=== PATIENT | female | born 1945 | race Caucasian/White ===

== ENCOUNTER → 2017-01-02 | Outpatient (CLI) | payer BC ==
[~2017-01-02] MED LIST: ASPUNK PO; HYOS0.1255 PO
--- NOTE | 2017-01-02 15:40 | MAMMOGRAPHY REPORT ---
BILATERAL DIGITAL SCREENING MAMMOGRAM WITH CAD: 01/02/2017 CLINICAL HISTORY: Routine screening. Patient has no complaints. TECHNIQUE: Current study was also evaluated with a Computer Aided Detection (CAD) system. Bilatera l CC and MLO views were obtained. COMPARISON: Comparison is made to exams dated: 12/28/2015 mammogram, 12/26/2014 mammogram, 12/27/2013 mammogram, 12/15/2013 mammogram, 12/14/2012 mammogram, and 12/11/2011 mammogram - [facility]. BREAST COMPOSITION: There are scattered areas of fibroglandular density in both breasts. FINDINGS: No suspicious masses, calcifications, or areas of architectural distortion are noted in e ither breast. There has been no significant interval change compared to prior exams. IMPRESSION: ACR BI-RADS CATEGORY 1: NEGATIVE There is no mammographic evidence of malignancy. A 1 year screening mammogram is recommended. The p atient will receive written notification of the results. Approximately 10% of breast cancers are not detected with mammography. A negative mammographic repor t should not delay biopsy if a clinically suggestive mass is present. Laura Umana M.D. ah/:01/02/2017 15:05:22 Orchestrator: Mirna CORCORAN(R)(M), [facility] letter sent: Normal 1/2 BI-RADS Code: ACR BI-RADS Category 1: Negative
== END | disposition home or self-care (01) ==
LOC: C.MAMM 09:28
PROVIDERS: ATTEND Obstetrics & Gynecology
DX: Z12.31 Encounter for screening mammogram for malignant neoplasm of breast (principal)

== ENCOUNTER → 2017-02-21 | Outpatient (CLI) | payer BC | END | disposition home or self-care (01) | LOC: C.LABSPEC 17:21 | PROVIDERS: ATTEND Obstetrics & Gynecology | DX: N76.0 Acute vaginitis (principal) ==

== ENCOUNTER → 2018-01-05 | Outpatient (CLI) | payer BC ==
--- NOTE | 2018-01-06 07:46 | MAMMOGRAPHY REPORT ---
BILATERAL DIGITAL SCREENING MAMMOGRAM TOMOSYNTHESIS WITH CAD: 01/05/2018 CLINICAL HISTORY: Routine screening. TECHNIQUE: Breast tomosynthesis in addition to standard 2D mammography was performed. Current study was also evaluated with a Computer Aided Detection (CAD) system. COMPARISON: Comparison is made to exams dated: 01/02/2017 mammogram, 12/28/2015 mammogram, 12/26/2014 m ammogram, 12/15/2013 mammogram, 12/14/2012 mammogram, and 12/11/2011 mammogram - [facility] nter. BREAST COMPOSITION: There are scattered areas of fibroglandular density in both breasts. FINDINGS: No suspicious mass, architectural distortion or cluster of microcalcifications is seen. T here are benign coarse calcifications in the right breast. IMPRESSION: ACR BI-RADS CATEGORY 1: NEGATIVE There is no mammographic evidence of malignancy. A 1 year screening mammogram is recommended. The pa tient will receive written notification of the results. Approximately 10% of breast cancers are not detected with mammography. A negative mammographic report should not delay biopsy if a clinically suggestive mass is present. Tanesha Jensen M.D. ay/:01/05/2018 20:38:56 Sand Mixer Operator: Mirna CORCORAN(Gracie)(M), [facility] letter sent: Normal 1/2 BI-RADS Code: ACR BI-RADS Category 1: Negative
== END | disposition home or self-care (01) ==
LOC: C.MAMM 09:50
PROVIDERS: ATTEND Family Medicine
DX: Z12.31 Encounter for screening mammogram for malignant neoplasm of breast (principal)

== ENCOUNTER 2023-10-23 09:55 | Inpatient (IN) ==
[2023-10-23] MEDS ORDERED: SODIUM CHLORIDE 0.9% 500 ML IV STA (10:17)
[2023-10-23] MEDS ORDERED: ASPIRIN CHEW 324 MG PO STA (10:17)
[2023-10-23] MEDS ORDERED: MoRPHine SULFATE 4 MG/ML 1 ML CARP\\VIAL IV STA (10:17)
[2023-10-23] MEDS ORDERED: niCARdipine HCL INJ 2.5 MG/ML 10 ML AMP ONE (10:18)
[2023-10-23] MEDS ORDERED: ONDANSETRON INJ 2 MG/ML 2 ML VIAL IV STA (10:18)
[2023-10-23] MEDS ORDERED: MIDAZOLAM HCL 1 MG/ML 2ML VIAL ONE (10:19)
[2023-10-23] MEDS ORDERED: NITROGLYCERIN/D5W 100MCG/ML 20ML SYR ONE (10:19)
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
--- NOTE | 2023-10-23 10:30 | Pre Anesthesia Assessment ---
Date of Service October 23, 2023 Pre Sedation Assessment Vital Signs Temp Pulse Resp BP Pulse Ox O2 Del Method 10/23/23 10:29 77 10/23/23 09:56 Room Air 10/23/23 09:56 97.9 F 75 18 159/82 H 100 Cardiovascular + regular rate Respiratory + respiratory effort normal Pre-Sedation Airway Assessment Smoking Status: Never smoker Hx Sleep Apnea: No Hx Difficult Intubation: No Short, Thick Neck: No Thyromental Distance: > or= 3.5 Finger Breadths Oral Cavity: + Dental Abnormalities Mallampati Class: III ASA: ASA4 Procedure Planning Contraindications for Sedation: none Current Medications Reviewed: Yes Notes The planned sedation has been discussed with the patient. Informed Consent was obtained. I have identified the patient, determined the appropriateness of sedation and have assessed the patient immediately prior to the procedure. All medicine(s) and interventions are by my order.
[2023-10-23] MEDS ORDERED: TICAGRELOR 90 MG TAB ONE (10:32)
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
--- NOTE | 2023-10-23 10:38 | Cardiac Catheterization ---
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 Cardiac Status Clinical evaluation leading to the procedure CAD Presenation: STEMI Anginal Classification: CCS IV Diagnostic Physicians Name: Kana Schwarz MD Closure Device Recommendations: Medical Therapy and/or Counseling Cardiac Cath Procedure Full Procedure Date October 23, 2023 Pre-Procedure Diagnosis Pre-Procedure Diagnosis: STEMI AUC Score AUC Score: 9 Post-Procedure Diagnosis Post-Procedure Diagnosis: Severe CAD, Successful PCI and Normal Intracardiac Pressures Procedure(s) Performed Procedure(s) Performed: Coronary Angiography, Left Heart Cath and Drug Eluting Stent Sustainability Communicator Kana Schwarz MD Green Pipefitter(s) Zoraida Estimated Blood Loss Estimated Blood Loss: 25 Medication(s) Medication(s): Fentanyl, Heparin, Lidocaine 1%, Nicardipine, Nitroglycerin and Versed Medication(s): Ticagrelor Summary of Findings Indication: STEMI/Heart Alert Access: 6 Fr right radial artery Catheters: Spangler, JR4 guide, pigtail Findings: LM -Short, normal caliber, no significant disease LAD -medium caliber, calcified, 40 to 50% proximal disease, 80% distal stenosis prior to wrapping around apex. Small D1, D2 with mild disease. Circumflex -medium caliber 40% proximal stenosis at takeoff of OM1. Mid segment luminal regularities. Small OM1 without disease. Medium OM 2 without significant disease. RCA -dominant, medium caliber, 30 to 40% calcified proximal stenosis, subtotal distal RCA stenosis at bifurcation with PDA. VASYL I flow in the right posterior AV branch. 99% ostial small RPDA LVEDP -10 -- PCI -- Antithrombotic therapy: Heparin, ticagrelor Procedure: RCA cannulated with JR4 guide Whisper wire passed across lesion into distal right posterior AV branch, PLB Multiple attempts made to pass wire into PDA initially unsuccessful Distal RCA into PAV lesion predilated with 2.0 compliant balloon Further attempts made to wire into PDA with multiple wires. Eventually able to cross into PDA with executive pilot 50 and Corsair catheter. Ostial PDA dilated with prolonged 2.0 balloon inflation Dilated lesion stented with 2.5 x 18 mm Anibal from distal RCA across PDA into PAV. Stent post-dilated with stent balloon IC vasodilators administered for spasm Post procedure VASYL 3 flow, stent well expanded with minimal residual stenosis. Residual moderate ostial PDA stenosis but VASYL-3 flow. No other apparent cardiac complications. Arterial Closure: TR band Summary: 1. Inferior STEMI Subtotally occluded distal RCA at bifurcation with PDA RPDA 99% ostial stenosis 2. Severe non-culprit coronary artery disease -45% proximal LAD disease, 80% small distal LAD 40% proximal circumflex 3. Normal intracardiac filling pressure 4. Successful PCI of distal RCA into R-PAV branch with single LUÍS (2.5 x 18 mm [place]). -PTCA of ostial RPDA with 2.0 balloon Recommendations: Admit to ICU for continued monitoring Loaded with ticagrelor 180 mg in Landscape Crew Member Continue dual-antiplatelet therapy for at least 1 year. Trend troponins until peak, Check Echo Uptitrate beta-brittany/CELENA as BP allows High-dose statin Consult cardiac Rehab Plan on medical management of residual CAD. If refractory exertional symptoms as an outpatient PCI of distal LAD could be considered. Hemodynamics Rest Ao:: 158/64/101 Final Ao: 131/62/88 LV: 130/10 Recommendations Recommendations: Medical Therapy and/or Counseling Specimens Specimens: None Radiation Exposure (mGy) 3981 Contrast (mls) 128 Anesthesia Moderate 5563-1884 Procedural Complication(s) None Disposition ICU I attest to the content of the Intraoperative Record and any orders documented therein. Any exceptions are noted below. [facility] Card Cath Procedure Codes Cardiac Catheterization Procedure 1: Cardiovascular Cath Procedures: 59641 Coronaries and LHC (+/-LV) Moderate Sedation Procedure 1: Sedation/Anesthesia: 59429 Mod Sedation by the same physician;Init15 Min Child Age 5 & Up Procedure 2: Sedation/Anesthesia: 03450 Mod Sedation by the same physician; Ea Addit ional15 Minutes Stenting Procedure 1: Cardiovascular Stent Procedures: 57446 Perc transluminal revascularization of acute sub/total occl, aMI PG Care Time/CCT Total # of Minutes Spent Total Time Spent with Patient: Total time spent is greater than 50% in coordination of care (as documented) at patient's floor/unit and/or counseling patient:
[2023-10-23 10:41] LABS: Basophils # (auto) 0.08 K/uL (0.00-0.20); Basophils % (auto) 0.9 %; Eosinophils # (auto) 0.11 K/uL (0.00-0.50); Eosinophils % (auto) 1.2 %; Hematocrit (blood only) 43.4 % (37.0-47.0); Hemoglobin 14.8 g/dl (12.0-16.0); Immature Granulocytes # (auto) 0.07 K/uL (0.01-0.20); Immature Granulocytes % (auto) 0.8 %; Lymphocytes # (auto) 1.99 K/uL (1.20-3.40); Lymphocytes % (auto) 21.6 %; Mean Corpuscular Hemoglobin 31.6 pg (25.0-34.0); Mean Corpuscular Hgb Conc 34.1 g/dL (32.0-36.0); Mean Corpuscular Volume 92.5 fL (80.0-100.0); Mean Platelet Volume 8.8 fL (9.4-12.4); Monocytes # (auto) 0.66 K/uL (0.11-0.59); Monocytes % (auto) 7.2 %; Neutrophils % (auto) 68.3 %; Platelet Count 438 K/uL (130-400); RDW Coefficient of Variation 12.2 % (11.5-14.5); RDW Standard Deviation 41.3 fL (36.4-46.3); Red Blood Count 4.69 M/uL (4.20-5.40); White Blood Count 9.21 K/ul (4.8-10.8)
[2023-10-23 11:01] LABS: Albumin Globulin Ratio 1.4 (0.9-2); Albumin Level 4.2 gm/dl (3.4-5.0); BUN Creatinine Ratio 18.4 (10-20); Bilirubin,Total 0.6 mg/dl (0.2-1.0); Calcium 8.8 mg/dl (8.6-10.3); Creatinine Clr Calc Pharmacy 65.9 ml/min; Est GFR (African American) 88.3 ml/min; Est GFR (Non-African American) 76.2 ml/min; Potassium 4.1 mmol/L (3.5-5.1); Total Protein 7.2 gm/dl (6.0-8.3)
[2023-10-23 11:07] LABS: Troponin I High Sensitivity 27.7 pg/ml (0-14)
[2023-10-23] MEDS ORDERED: ACETAMINOPHEN 325 MG TAB PO PRN (11:56)
[2023-10-23] MEDS ORDERED: NITROGLYCERIN SL 0.4 MG/TAB TAB SL PRN (11:56)
[2023-10-23] MEDS ORDERED: SODIUM CHLORIDE 0.9% 500 ML IV SCH (12:15)
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
--- NOTE | 2023-10-23 12:35 | Post Anesthesia Assessment ---
Date of Service October 23, 2023 Post Sedation Assessment Vital Signs Temp Pulse Pulse Resp BP BP BP 10/23/23 12:27 70 10/23/23 12:09 97.3 F L 66 18 127/65 10/23/23 10:29 77 10/23/23 10:19 73 21 153/88 H 10/23/23 09:56 10/23/23 09:56 97.9 F 75 18 159/82 H Pulse Ox O2 Del Method 10/23/23 12:27 10/23/23 12:09 97 Room Air 10/23/23 10:29 10/23/23 10:19 100 Room Air 10/23/23 09:56 Room Air 10/23/23 09:56 100 Recovery Score Activity: Moves 4 extremities Respiration: Deep Breath/Cough Circulation: +/-20% PreAnes Value Consciousness: Fully Awake Oxygen Saturation: O2 needed for >90% Discharge Sedation Level of Care: Fast Track Phase II Post Sedation Plan On clinical assessment, the patient appears to have tolerated the sedation without complications. Patient is recovering as anticipated. Patient will continue to be monitored by nursing and may be discharged when sedation discharge criteria are met per below protocol. Upon Completions of procedure up to 15 minutes continue every 5 minute vital signs and the P.A.R. score; then discharge to a Phase I or Fast Track to Phase II per the following guidelines: * Discharge Patient to appropriate Phase II area if PAR is 8 or greater or return to pre- procedure baseline. The post - procedure orders will be as directed. * If PAR score is less than 8 or not return to pre-procedure baseline then patient will follow Phase I monitoring till PAR is reached for Phase II. The Phase I may be done in procedure room or may call to secure a Phase I area. * If naloxone or flumazenil are used for reversal, hold in Phase I for continued monitoring from when last reversal dose was given for a minimum of 60 minutes or longer pending the nurse and/or physician discretion of patient condition before discharge to Phase II. Please call the Sedation Physician to re-evaluate and complete post-note for discharge to Phase II area. Do NOT discharge from procedure sedation or Phase 1 until post- sedation evaluation note is complete by procedure /sedation MD Sedation Discharge Instructions to be given to the patient at discharge to home.
[2023-10-23] MEDS: HEPARIN (PORCINE) 1000 UNIT/ML 10 ML (CATH LAB USE ONLY) ONE ×2 (12:43→14:44)
[2023-10-23] MEDS: ATROPINE SULFATE 0.1 MG/ML 10ML SYR IV ONE ×2 (12:43→17:41)
[2023-10-23] MEDS: fentaNYL citrate PF 100 MCG/2 ML VIAL ONE ×2 (12:43→14:45)
[2023-10-23] MEDS: MIDAZOLAM HCL 1 MG/ML 2ML VIAL ONE ×2 (12:44→14:45)
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
[2023-10-23 13:09] LABS: Prothrombin Time 11.2 Seconds (9.0-12.0)
--- OUTSIDE RECORDS SUMMARY | 2023-10-23 13:42 | External Medical Summary | Summary of Care ---
Author Name Unknown Organization [facility] Address [address] [place] [address] Phone [phone] Care Team Providers Care Fiber Product Cutting Machine Operator Name Role Phone Isabelle LIRA MD, Sachin Chang Primary Care Provider [phone] Reason for Visit * Reason Onset Date Comments Med Request 10/17/2023 Encounter Details Date Type Department Care Team (Late st Contact Info) Description 10/17/2023 [facility] [address] [place] [address] Cheryl Clark MD Med Request Allergies Active Allergy Reactions Criticality Noted Date Comments Pollen 08/18/2014 Asthma as a child documented as of this encounter (statuses as of 10/17/2023) Medications Medication Sig Dispensed Refills Start Date End Date Status EXCEDRIN EXTRA STRENGTH 250-250-65 MG PO TABS as directed 0 Active Iron-Vitamin C 100-250 MG Oral Tablet 0 Active fluticasone (FLONASE) 50 MCG/ACT nasal spray 2 squirts to each nostril once a day - opp hand 1 Bottle 5 04/23/2019 Active guaiFENesin ER 600 MG Oral Tablet Extended Release 12 Hour Start: 12/11/21 12:53:00 EST 0 12/11/2021 Active Azelastine HCl 0.1 % Nasal Solution Administer into nostril 1 [place] in the morning AND 1 [place] before bedtime. 30 mL 12 02/21/2022 Active Enstilar 0.005-0.064 % External Foam (Calcipotriene-Beta meth Diprop)Indications: Psoriasis Apply to scalp daily as needed 60 g 1 03/08/2022 Active Acetaminophen ER 650 MG Oral Tablet Extended Release (Tylenol 8 Hour Arthritis Pain) Take by mouth 1 Tablet every 8 hours as needed for Pain, Moderate. 100 Tablet 3 05/21/2022 Active Fluocinolone Acetonide Scalp 0.01 % External Oil ([place]-Smoothe/FS Scalp)Indications:D ermatitis Apply to scalp at night as needed, wash off in AM 118.28 mL 2 12/16/2022 Active Triamcinolone Acetonide 0.1 % External Ointment (Aristocort)Indicat ions:Dermatitis Apply to trunk and extremities up to twice daily until improved, then taper down 80 g 2 12/16/2022 Active Methocarbamol 500 MG Oral Tablet (Robamol) Take 1 Tablet by mouth 4 times a day as needed for Muscle spasms. 0 Active Ketoconazole 2 % External Shampoo (Nizoral)Indication s:Seborrheic dermatitis Wash 1-2x a week face and scalp 120 mL 1 08/06/2023 Active Cefuroxime Axetil 500 MG Oral Tablet (Ceftin) Take 1 Tablet by mouth in the morning and 1 Tablet before bedtime. 20 Tablet 1 09/24/2023 Active amLODIPine Besylate 5 MG Oral Tablet (Norvasc) Take 1 Tablet by mouth in the morning. 90 Tablet 3 09/24/2023 Active Dupixent 300 MG/2ML Subcutaneous Solution Pen-injector (Dupilumab) Inject one pen under the skin every 2 weeks. 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 Irritable bowel syndrome 01/01/2001 Allergic rhinitis Deviated nasal septum documented as of this encounter (statuses as of 10/17/2023) Resolved Problems Problem Noted Date Diagnosed Date Resolved Date Cervicalgia 07/03/2011 07/02/2018 Headache 07/03/2011 03/30/2018 Overview: ICD-10 update of inactive term Subjective tinnitus 12/04/2009 07/02/20 18 Temporomandibular joint diso rders, unspecified 12/04/2009 03/30/2018 RECURRENT ACUTE SINUSITIS 05/30/2008 Anxiety state 07/30/2005 02/25/2023 Menopause 01/01/2001 03/30/2018 documented as of this encounter (statuses as of 10/17/2023) Immunizations Name Administration Dates Next Due COVID-19 mRNA, LNP-s, No Pre serve, 2-Dose Series (Capriza) 07/22/2022,01/12/2022,07/03/2021,11/20,10/27/2020 Pneumococcal Conjugate Vacc, 13 Valent (Prevnar) 03/15/2015 Pneumococcal Polysaccharide PPV23 (Pneumovax) 02/23/2013 Seasonal Influenza, PF, 6 M & above, IM , (FluLaval or Fluzone) 08/07/2022,07/02/2018 Seasonal Influenza, Split, I IV3, With Preserve, Inj 07/25/2015,08/19/2014,09/03/2013 TDAP (age 11 and older)(Adacel) 03/21/2009 Varicella Zoster Vaccine (Adult) 02/03/2012 Zoster Vaccine Recombinant (Shingrix) 08/11/2018 ,04/06/2018 documented as of this encounter Social History Tobacco Use Types Packs/Day Years Used Date Smoking Tobacco: Never Smokeless Tobacco: Never Alcohol Use Standard Drinks/Week Comments Yes 7 (1 standard drink = 0.6 oz pur e alcohol) per week PHQ-2 Answer Date Recorded PHQ Adult Total Score 0 02/25/2023 Sex and Gender Information Value Date Recorded Sex Assigned at Female 05/25/2021 11:03 AM EDT Gender Identity Female 05/25/2021 11:03 AM EDT Sexual Orientation Straight 05/25/2021 11 :03 AM EDT Job Start Date Occupation Industry Not on file Not on file Not on file documented as of this encounter Miscellaneous Notes * Telephone Encounter - Marva La LPN - 10/17/2023 3:37 PM EST Called [employer] back to verify 28 day PA and supply amount. * Telephone Encounter - Mitra De La Cruz [facility] - 10/17/2023 3:07 PM EST Pa Valid for 28 days not 90 days. Please call [facility] back and notify of this Mitra De La Cruz, PharmD,BCACP Medication Therapy Disease Management Dermatology Department 10/17/2023, 3:08 PM * Telephone Encounter - Maria A Lopez OSA - 10/17/2023 10:30 AM EST Linnea Carmona from [facility] is calling to see if a provider can update the patient's prescription for Dupixent to a 90 day supply (it's written as a 30 day supply). Please call with any questions to: [phone] option 1 then option 6 Thank You, BRUNILDA Gilbert documented in this encounter Plan of Treatment Upcoming Encounters Date Type Department Care Team (Late st Contact Info) Description 01/29/2024 11:30 AM EDT Telemedicine Dermatology [address] [address] [place], Pharmacist Dermatology [address] [place] [address] 03/09/2024 10:45 AM EDT Office Visit [facility] [address] [place] [address] Keven Dutton MD [address] [facility] [place] [address] 03/25/2024 9:20 AM EDT Office Visit Family Practice [place] [address] [place] [address] Sachin Walton III, MD [address] [place] [address] Scheduled Procedures Name Priority Associated Diagnoses Date/Ti me COLONOSCOPY FLEXIBLE PROXIMA L DIAGNOSTIC Recall History of colonic polyps Health Maintenance Due Date Last Done Comments COVID-19 Vaccine (2022- season) 2023 07/22/2022, 01/12/2022, 01/12/2022, Additional history exists Influenza Vaccine (FLU shot) (#1) 2023 08/07/2022, 06/14/2021, 06/03/2020, Additional history exists Depression Screening 02/26/2024 02/25/2023, 03/20/2017 (Discussed) COLONOSCOPY-EVERY 5 YRS AGES 18-100 07/23/2026 07/23/2021, 07/23/2021, 07/23/2018, Additional history exists DXA Scan 06/04/2029 06/04/2022, 07/0 02/2017, 03/08/2013 DTaP,Tdap,and Td Vaccines (3 - Td or Tdap) 07/28/2030 07/28/2020, 03/21/2009 Pneumococcal Vaccine: 65+ Years Completed 03/15/2015, 02/23/2013 Zoster Vaccines Completed 08/11/2018, 070 11/2017, 02/03/2012 COLONOSCOPY-EVERY 3 YRS AGES 18-100 Discontinued 07/23/2021, 07/23/2021, 07/23/2018, Additional history exists GARDASIL-HPV IMMUNIZATION SERIES Aged Out No longer eligible based on patient's age to complete this topic Hepatitis B Aged Out No longer eligi ble based on patient's age to complete this topic MENINGOCOCCAL (MENACTRA/MENVEO) Aged Out No longer eligible based on patient's age to complete this topic documented as of this encounter Medical Devices Not on filedocumented as of this encounter Care Teams Fiber Product Cutting Machine Operator Relationship Specialty Start Date End Date Sachin Walton III, MD [address] [place] [address] PCP - General 01/04/02 documented as of this encounter
--- OUTSIDE RECORDS SUMMARY | 2023-10-23 13:43 | External Medical Summary | Summary of Care ---
Author Name Unknown Organization [facility] Address [address] [place] [address] Phone [phone] Care Team Providers Care Sales Administration Manager Name Role Phone Isabelle LIRA MD, Sachin Chang Primary Care Provider [phone] Encounter Details Date Type Department Care Team ([facility] st Contact Info) Description 09/25/2023 Specialty Pharmacy [facility], [address] [address] Medication, [facility] Specialty Refill, [address] [address] Allergies Active Allergy Reactions Criticality Noted Date Comments Pollen 08/18/2014 Asthma as a child documented as of this encounter (statuses as of 09/25/2023) Medications Medication Sig Dispensed Refills Start Date [...] % Nasal Solution Administer into nostril 1 [place] in the morning AND 1 [place] before bedtime. 30 mL 12 02/21/2022 Active [...] Fluocinolone Acetonide Scalp 0.01 % External Oil ([place]-Smoothe/FS Scalp)Indications:D ermatitis Apply to scalp at night [...] and scalp 120 mL 1 08/06/2023 Active Dupixent 300 MG/2ML Subcutaneous Solution Pen-injector (Dupilumab) Inject one pen under the skin every 2 weeks. 4 mL 4 08/08/2023 Active Cefuroxime Axetil 500 MG Oral Tablet (Ceftin) Take 1 Tablet by mouth in the morning and 1 Tablet before bedtime. 20 Tablet 1 09/24/2023 Active amLODIPine Besylate 5 MG Oral Tablet (Norvasc) Take 1 Tablet by mouth in the morning. 90 Tablet 3 09/24/2023 Active documented as of this encounter (statuses as of 09/25/2023) Active Problems Problem Noted Date Diagnosed Date [...] as of this encounter (statuses as of 09/25/2023) Resolved Problems Problem Noted Date Diagnosed Date Resolved Date Cervicalgia 07/03/2011 07/02/2018 Headache 07/03/2011 03/30/2018 Overview: ICD-10 update of inactive term Subjective tinnitus 12/04/2009 07/02/20 18 Temporomandibular joint diso rders, unspecified 12/04/2009 03/30/2018 RECURRENT ACUTE SINUSITIS 05/30/2008 Anxiety state 07/30/2005 02/25/2023 Menopause 01/01/2001 03/30/2018 documented as of this encounter (statuses as of 09/25/2023) Immunizations Name Administration Dates Next Due COVID-19 mRNA, LNP-s, No Pre serve, 2-Dose Series (The Grommet) 07/22/2022,01/12/2022,07/03/2021,11/20,10/27/2020 Pneumococcal Conjugate Vacc, 13 Valent (Prevnar) [...] on file documented as of this encounter Progress Notes * Pamela Jeong PHARM Tech - 09/25/2023 3:22 PM EST Pt stated during refill that she needs to fill with [facility] starting 10/06/2023. Asked that we transfer Rx to [facility] after this refill. Traci Jeong health and safety technician [facility] 09/25/2023 3:24 PM * Pamela Jeong PHARM Tech - 09/25/2023 3:21 PM EST Prescribed medication: Medication: dupixent Shipment date: 10/01 Delivery method: Specialty Mail Location Medication Delivered too? Prescription Address: [address] [place] [address] ANGELA Lamb [facility] 09/25/2023,3:21 PM documented in this encounter Plan of Treatment Upcoming Encounters Date Type Department Care Team (Late st Contact Info) Description 01/29/2024 11:30 AM EDT Telemedicine Dermatology [address] [address] [place], Pharmacist Dermatology [address] [place] [address] 03/09/2024 10:45 AM EDT Office Visit Dermatology [facility] [address] [place] [address] Keven Dutton MD [address] [place] [address] 03/25/2024 9:20 AM EDT Office Visit Family Practice [place] [address] [place] [address] Sachin Walton III, MD [address] [place] [address] Scheduled Procedures Name Priority Associated Diagnoses Date/Ti me COLONOSCOPY FLEXIBLE PROXIMA L DIAGNOSTIC Recall History of colonic polyps Health Maintenance Due Date Last Done Comments COVID-19 Vaccine ( season) 2023 07/22/2022, 01/12/2022, 01/12/2022, Additional history [...] filedocumented as of this encounter Care Teams Sales Administration Manager Relationship Specialty Start Date End Date Isabelleterrence LIRA, Sachin Chang MD [address] [facility] [place] [address] PCP - General 01/04/02 documented as of this encounter
--- OUTSIDE RECORDS SUMMARY | 2023-10-23 13:43 | External Medical Summary | Summary of Care ---
Author Name Unknown Organization [facility] Address [address] [place] [address] Phone [phone] Care Team Providers Care Vegetable Vendor Name Role Phone Isabelle LIRA MD, Sachin Chang Primary Care Provider [phone] Reason for Visit * Reason Comments Re-Check Encounter Details Date Type Department Care Team (Late st Contact Info) Description 09/24/2023 9:40 AM EST [facility] [address] [facility] [place] [address] Sachin Waltno III, MD [address] [facility] [place] [address] HTN, goal below 140/90*; Gastroesophageal reflux disease, unspecified whether esophagitis present; Loose stools; Acute maxillary sinusitis, recurrence not specified Allergies Active Allergy Reactions Criticality Noted Date Comments Pollen 08/18/2014 Asthma as a child documented as of this encounter (statuses as of 09/24/2023) Medications Medication Sig Dispensed Refills Start Date [...] % Nasal Solution Administer into nostril 1 [place] in the morning AND 1 [place] before bedtime. 30 mL 12 02/21/2022 Active Enstilar 0.005-0.064 % External Foam (Calcipotriene-Bet ameth Diprop)Indications :Psoriasis Apply to scalp daily as needed 60 g 1 03/08/2022 Active Acetaminophen ER 650 MG Oral Tablet Extended Release (Tylenol 8 Hour Arthritis Pain) Take by mouth 1 Tablet every 8 hours as needed for Pain, Moderate. 100 Tablet 3 05/21/2022 Active Fluocinolone Acetonide Scalp 0.01 % External Oil ([place]-Smoothe/FS Scalp)Indications: Dermatitis Apply to scalp at night as needed, wash off in AM 118.28 mL 2 12/16/2022 Active Triamcinolone Acetonide 0.1 % External Ointment (Aristocort)Indica tions:Dermatitis Apply to trunk and extremities up to twice daily until improved, then taper down 80 g 2 12/16/2022 Active Methocarbamol 500 MG Oral Tablet (Robamol) Take 1 Tablet by mouth 4 times a day as needed for Muscle spasms. 0 Active Ketoconazole 2 % External Shampoo (Nizoral)Indicatio ns:Seborrheic dermatitis Wash 1-2x a week face and [...] the morning. 90 Tablet 3 09/24/2023 Active amLODIPine Besylate 5 MG Oral Tablet (Norvasc) Take 1 Tablet by mouth in the morning. 90 Tablet 3 02/25/2023 3 Discontinue d(Refill) documented as of this encounter (statuses as of 09/24/2023) Active Problems Problem Noted Date Diagnosed Date [...] as of this encounter (statuses as of 09/24/2023) Resolved Problems Problem Noted Date Diagnosed Date Resolved Date Cervicalgia 07/03/2011 07/02/2018 Headache 07/03/2011 03/30/2018 Overview: ICD-10 update of inactive term Subjective tinnitus 12/04/2009 07/02/20 18 Temporomandibular joint diso rders, unspecified 12/04/2009 03/30/2018 RECURRENT ACUTE SINUSITIS 05/30/2008 Anxiety state 07/30/2005 02/25/2023 Menopause 01/01/2001 03/30/2018 documented as of this encounter (statuses as of 09/24/2023) Immunizations Name Administration Dates Next Due COVID-19 mRNA, LNP-s, No Pre serve, 2-Dose Series (OxiCool) 07/22/2022,01/12/2022,07/03/2021,11/20,10/27/2020 Pneumococcal Conjugate Vacc, 13 Valent (Prevnar) [...] on file documented as of this encounter Last Filed Vital Signs Vital Sign Reading Time Taken Comments Blood Pressure 122/71 09/24/2023 9:48 AM EST Pulse 68 09/24/2023 9:48 AM EST Temperature 36.7 C (98.1 F) 09/24/2023 9:48 AM ES T Respiratory Rate 16 09/24/2023 9:48 AM EST Oxygen Saturation - - Inhaled Oxygen Concentration - - Weight 76.2 kg (168 lb) 09/24/2023 9:48 AM EST Height - - Body Mass Index 28.39 08/19/2023 9:54 AM EST documented in this encounter Progress Notes * Isabelle III, Sachin Chang MD - 09/24/2023 10:26 AM EST Subjective: Tika Wilson is a 77 year old female. Chief Complaint Patient presents with Re-Check HPI: Follow-up hypertension been [place] has had loose stools or heartburn had KUB stool studies doneall negative having some acid burning sensation up into her throat had been on Pepcid then started Mylanta and stopped the Pepcid Imodium had worked to trying get her stools firm up has stops those had loose stool no gross blood started Pro biotics a week ago has chronic sinus and problems headachethick nasal drainage inguinal cough a lot of gas which has lessened with Mylanta psoriasis on Dupixent PMH: Patient Active Problem List Diagnosis Code Irritable bowel syndrome K58.9 ADVANCE DIRECTIVE INFORMATION Allergic rhinitis J30.9 Deviated nasal septum J34.2 Esophageal reflux K21.9 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 20 Tablet 1 amLODIPine Besylate 5 MG Oral Tablet (Norvasc) Take 1 Tablet by mouth in the morning. 90 Tablet 3 EXCEDRIN EXTRA STRENGTH 250-250-65 MG PO TABS as directed Iron-Vitamin C 100-250 MG Oral Tablet fluticasone (FLONASE) 50 MCG/ACT nasal spray 2 squirts to each nostril once a day - opp hand 1 Bottle 5 guaiFENesin ER 600 MG Oral Tablet Extended Release 12 Hour Start: 12/11/21 12:53:00 EST Azelastine HCl 0.1 % Nasal Solution Administer into nostril 1 [place] in the morning AND 1 [place] before bedtime. 30 mL 12 Enstilar 0.005-0.064 % External Foam (Calcipotriene-Betameth Diprop) Apply to scalp daily as [id number] g 1 Acetaminophen ER 650 MG Oral Tablet Extended Release (Tylenol 8 Hour Arthritis Pain) Take by mouth 1 Tablet every 8 hours as needed for Pain, Moderate. 100 Tablet 3 Fluocinolone Acetonide Scalp 0.01 % External Oil ([place]-Smoothe/FS Scalp) Apply to scalp at night as needed, wash off in AM 118.28 mL 2 Triamcinolone Acetonide 0.1 % External Ointment (Aristocort) Apply to trunk and extremities up to twice daily until improved, then taper down 80 g 2 Methocarbamol 500 MG Oral Tablet (Robamol) Take 1 Tablet by mouth 4 times a day as needed for Muscle spasms. Ketoconazole 2 % External Shampoo (Nizoral) Wash 1-2x a week face and scalp 120 mL 1 Dupixent 300 MG/2ML Subcutaneous Solution Pen-injector (Dupilumab) Inject one pen under the skin every 2 weeks. 4 mL 4 No current facility-administered medications for this visit. Review of patient's allergies indicates: Allergen Reactions Pollen Asthma as a child Past Medical History: Diagnosis Date Acute gastric ulcer without mention of hemorrhage, perforation, or obstruction 12/22/89 secondary to NSAIDS, multiple antral ulcers EGD 1989 Allergic rhinitis Asthma, allergic as a child Benign neoplasm of colon 07/08/11 polyps--adenomatous tissue --repeat in 3 yrs Deviated nasal septum Internal hemorrhoids also external hemorrhoids Irritable bowel syndrome Other anxiety states Other chronic sinusitis Past Surgical History: Procedure Laterality Date COLONOSCOPY W/ LESION REMOVAL, SNARE 07/08/2011 polyps--adenomatous tissue --repeat in 3 yrs COLONOSCOPY, DIAGNOSTIC (RECTUM) 07/22/2014 adenomatous polyps, repeat 2 yrs/COLONOSCOPY FLEXIBLE PROXIMAL DIAGNOSTIC performed by Jonathan Garcia MD at [facility]COPY [facility] COLONOSCOPY, DIAGNOSTIC (RECTUM) 07/10/2015 adenomatous polyps, repeat 3 yrs/COLONOSCOPY FLEXIBLE PROXIMAL DIAGNOSTIC performed by Jonathan Garcia MD at ENDOSCOPY [facility] COLONOSCOPY, DIAGNOSTIC (RECTUM) 07/23/2018 adenomatous & hyperplastic polyps, repeat 3 yrs/COLONOSCOPY FLEXIBLE PROXIMAL DIAGNOSTIC performed by Jonathan Garcia MD at ENDOSCOPY [facility] COLONOSCOPY, DIAGNOSTIC (RECTUM) 07/23/2021 colon polyp, repeat 5 yrs / COLONOSCOPY FLEXIBLE PROXIMAL DIAGNOSTIC performed by Fuad Hawley MD at ENDOSCOPY [facility] EGD, FLEXIBLE, DIAGNOSTIC 09/26/2021 normal bx / ESOPHAGOGASTRODUODENOSCOPY (EGD), FLEXIBLE, TRANSORAL, DIAGNOSTIC performed by Lorena Monaco MD at ENDOSCOPY [facility] INSERTION OF LENS PROSTHESIS Bilateral 2018 MAMMOGRAM - BILATERAL 10/09/2006 [place] code 2/benign findings/dr Rouse MAMMOGRAM SCREENING-BILATERAL 10/26/2007 birad 2 MAMMOGRAM SCREENING-BILATERAL 12/02/2008 birad code 2, benign findings. PAP SCREEN 08/30 normal/o whitfield PAP SCREEN 08/15/2004 ashley/negative PAP SCREEN 09/10/2005 satisfactory for evaluation, dr rouse PAP SCREEN 04/10/2011 negative for mailgnancy PAP SCREEN 03/09/2013 neg SIGMOIDOSCOPY, DIAGNOSTIC 07/21/1985 int/ext hemorrhoids TOOTH ROOT REMOVAL 08/10/2014 UPPER GI ENDOSCOPY/EXAM 12/22/1989 UPPER GI WITHOUT AIR/KUB 03/09/1984 NL esophogram and UGI Objective: The patient is a 77 year old female BP 122/71 | Pulse 68 | Temp 36.7 C (98.1 F) | Resp 16 | Wt 76.2 kg (168 lb) | BMI 28.39 kg/m| BSA 1.86 m General: alert, healthy, and no distress Eye Exam: PERRLA, extraocular movements intact, conjunctiva are pink and non- injected, sclera clear Ears: External ears normal, Canals clear, TM's Normal Nose: sinus tenderness Oropharynx: no exudate, no erythema, lips, buccal mucosa, and tongue normal, and mucous membranes are moist Heart: regular rate & rhythm, no murmur, and no gallops Lungs: lungs clear to auscultation Abdomen: abdomen soft, normal bowel sounds, no masses or organomegaly, and epigastric tenderness ASSESSMENT: I10 HTN, goal below 140/90 (primary encounter diagnosis) K21.9 Gastroesophageal reflux disease, unspecified whether esophagitis present R19.5 Loose stools Maxillary sinusitis PLAN: Restart Pepcid Mylanta as needed continue Pro biotics treat sinuses with Ceftin restart nasal rinses saline RSV vaccine discussed keep in touch call if not resolving or worsening symptoms Follow up in 6 month(s). Sachin Walton III, MD * Merly Hood RN - 09/24/2023 9:48 AM EST Pt has been having irregular bowel movements, loose bowels, acid reflux, gas. Has stuffiness, headache for a couple of weeks. documented in this encounter Plan of Treatment Upcoming Encounters Date Type Department Care Team (Late st Contact Info) Description 01/29/2024 11:30 AM EDT Telemedicine Dermatology [address] [address] [place], Pharmacist Dermatology [address] [place] [address] 03/09/2024 10:45 AM EDT Office Visit Dermatology [facility] [place] [facility] [place] [address] Keven Dutton MD [address] [facility] [place] [address] 03/25/2024 9:20 AM EDT Office Visit Family Practice [facility] [place] [address] [facility] [place] [address] Sachin Walton III, MD [address] [facility] [place] [address] Scheduled Procedures Name Priority Associated Diagnoses Date/Ti [...] Additional history exists DXA Scan 06/04/2029 06/04/2022, 02/2017, 03/08/2013 DTaP,Tdap,and Td Vaccines (3 - Td or Tdap) 07/28/2030 07/28/2020, 03/21/2009 Pneumococcal Vaccine: 65+ Years Completed 03/15/2015, 02/23/2013 Zoster Vaccines Completed 08/11/2018, 11/2017, 02/03/2012 COLONOSCOPY-EVERY 3 YRS AGES 18-100 [...] Not on filedocumented as of this encounter Visit Diagnoses Diagnosis HTN, goal below 140/90- Primary Unspecified essential hypertension Gastroesophageal reflux disease, unspecified whether esophagitis present Loose stools Abnormal feces Acute maxillary sinusitis, recurrence not specified documented in this encounter Care Teams Vegetable Vendor Relationship Specialty Start Date End Date Sachin Walton III, MD [address] [facility] [place] [address] PCP - General 01/04/02 documented as of this encounter"
--- OUTSIDE RECORDS SUMMARY | 2023-10-23 13:43 | External Medical Summary | Summary of Care ---
Author Name Unknown Organization [facility] Address [address] [place] [address] Phone [phone] Care Team Providers Care Gantry Crane Operator Name Role Phone Isabelle LIRA MD, Sachin Chang Primary Care Provider [phone] Reason for Visit * Reason Onset Date Comments Medication Refill 10/08/2023 Encounter Details Date Type Department Care Team (Late st Contact Info) Description 10/08/2023 Refill Dermatology [facility] [place] [address] [place], [place] [id number] Cheryl Clark MD [address] [facility] [place] [address] Allergies Active Allergy Reactions Criticality Noted Date Comments Pollen 08/18/2014 Asthma as a child documented as of this encounter (statuses as of 10/08/2023) Medications Medication Sig Dispensed Refills Start Date [...] % Nasal Solution Administer into nostril 1 [place] in the morning AND 1 [place] before bedtime. 30 mL 12 02/21/2022 Active [...] Fluocinolone Acetonide Scalp 0.01 % External Oil ([place]-Smoothe/FS Scalp)Indications: Dermatitis Apply to scalp at night [...] 2 weeks. 4 mL 1 10/08/2023 Active Dupixent 300 MG/2ML Subcutaneous Solution Pen-injector (Dupilumab) Inject one pen under the skin every 2 weeks. 4 mL 4 08/08/2023 4 Discontinue d(Refill) documented as of this encounter (statuses as of 10/08/2023) Active Problems Problem Noted Date Diagnosed Date [...] as of this encounter (statuses as of 10/08/2023) Resolved Problems Problem Noted Date Diagnosed Date Resolved Date Cervicalgia 07/03/2011 07/02/2018 Headache 07/03/2011 03/30/2018 Overview: ICD-10 update of inactive term Subjective tinnitus 12/04/2009 07/02/20 18 Temporomandibular joint diso rders, unspecified 12/04/2009 03/30/2018 RECURRENT ACUTE SINUSITIS 05/30/2008 Anxiety state 07/30/2005 02/25/2023 Menopause 01/01/2001 03/30/2018 documented as of this encounter (statuses as of 10/08/2023) Immunizations Name Administration Dates Next Due COVID-19 mRNA, LNP-s, No Pre serve, 2-Dose Series ([address] [place]) 07/22/2022,01/12/2022,07/03/2021,11/20,10/27/2020 Pneumococcal Conjugate Vacc, 13 Valent (Prevnar) [...] encounter Miscellaneous Notes * Telephone Encounter - Kana Mckeon RPh - 10/08/2023 9:06 AM EST Forwarding remaining refills to [facility] due to insurance change Kana Mckeon, AbdonD Clinical Pharmacist [facility] 9:07 AM, 10/08/2023 documented in this encounter Plan of Treatment Upcoming Encounters Date Type Department Care Team (Late st Contact Info) Description 01/29/2024 11:30 AM EDT Telemedicine Dermatology [address] [address] [place], Pharmacist Dermatology [address] [place] [address] 03/09/2024 10:45 AM EDT Office Visit Dermatology [address] [place] [address] Keven Dutton MD [address] [place] [address] 03/25/2024 9:20 AM EDT Office Visit Family Practice [address] [place] [address] Sachin Walton III, MD [address] [place] [address] [place] [address] Scheduled Procedures Name Priority Associated Diagnoses Date/Ti [...] Additional history exists DXA Scan 06/04/2029 06/04/2022, 0 02/2017, 03/08/2013 DTaP,Tdap,and Td Vaccines (3 - Td or Tdap) 07/28/2030 07/28/2020, 03/21/2009 Pneumococcal Vaccine: 65+ Years Completed 03/15/2015, 02/23/2013 Zoster Vaccines Completed 08/11/2018, 0 11/2017, 02/03/2012 COLONOSCOPY-EVERY 3 YRS AGES 18-100 [...] filedocumented as of this encounter Care Teams Gantry Crane Operator Relationship Specialty Start Date End Date Sachin Walton III, MD [address] [place] [address] PCP - General 01/04/02 documented as of this encounter
--- OUTSIDE RECORDS SUMMARY | 2023-10-23 13:43 | External Medical Summary ---
Author Name Unknown Address Unknown Organization K01:[facility] [place] [address] [facility] [address] Laboratory Report Ordering Provider Test Date Status CARRIE HERNANDEZ 08/20/2023 10:05:08 Final Observation Date Value Abnormality Reference (Units ) Status Campylobacter sp DNA.diarrheagenic [Presence] in Stool by MIRZA with probe detection 08/20/2023 10:05:08 Negative Negative Final Salmonella sp rpoD gene [Presence] in Stool by MIRZA with probe detection 08/20/2023 10:05:08 Negative Negative Final Shigella species+EIEC invasion plasmid antigen H ipaH gene [Presence] in Stool by MIRZA with probe detection 08/20/2023 10:05:08 Negative Negative Final Vibrio sp DNA [Identifier] in Specimen by MIRZA with probe detection 08/20/2023 10:05:08 Negative Negative Final Yersinia enterocolitica recN gene [Presence] in Stool by MIRZA with probe detection 08/20/2023 10:05:08 Negative Negative Final Escherichia coli Stx1 toxin stx1 gene [Presence] in Stool by MIRZA with probe detection 08/20/2023 10:05:08 Negative Negative Final Escherichia coli Stx2 toxin stx2 gene [Presence] in Stool by MIRZA with probe detection 08/20/2023 10:05:08 Negative Negative Final Norovirus genogroups I and II RNA panel - Stool by MIRZA with probe detection 08/20/2023 10:05:08 Negative Negative Final Rotavirus A RNA [Presence] in Stool by MIRZA with probe detection 08/20/2023 10:05:08 Negative Negative Final Performing Location LABORATORY [address] [facility] [address]
--- OUTSIDE RECORDS SUMMARY | 2023-10-23 13:43 | External Medical Summary | Summary of Care ---
Author Name Unknown Organization [facility] Address [address] [place] [address] Phone [phone] Care Team Providers Care Custom Car Builder Name Role Phone Isabelle LIRA MD, Sachin Chang Primary Care Provider [phone] Reason for Visit * Reason Comments Diarrhea Patient states loose BM x's 1 month. Patient states drank water in [place], has been upset since. Irritable Bowel Patient states sudde n onset of heartburn x's 1.5 week, sudden sweating and then IBS has kicked in with discomfort in lower abdomen. Encounter Details Date Type Department Care Team (Late st Contact Info) Description 08/19/2023 10:00 AM EST Office Visit General Internal Medicine [facility] [address] [facility] [place] [address] Efrain Clayton PA-C 200 [facility] [place] [address] Irritable bowel syndrome with both constipation and diarrhea*; Gastroesophageal reflux disease, unspecified whether esophagitis present Allergies Active Allergy Reactions Criticality Noted Date Comments Pollen 08/18/2014 Asthma as a child documented as of this encounter (statuses as of 08/19/2023) Medications Medication Sig Dispensed Refills Start Date [...] % Nasal Solution Administer into nostril 1 [place] in the morning AND 1 [place] before bedtime. 30 mL 12 02/21/2022 Active Enstilar 0.005-0.064 % External Foam (Calcipotriene-Be tameth Diprop)Indication s:Psoriasis Apply to scalp daily as needed 60 g 1 03/08/2022 Active Acetaminophen ER 650 MG Oral Tablet Extended Release (Tylenol 8 Hour Arthritis Pain) Take by mouth 1 Tablet every 8 hours as needed for Pain, Moderate. 100 Tablet 3 05/21/2022 Active Fluocinolone Acetonide Scalp 0.01 % External Oil ([place]-Smoothe/FS Scalp)Indications :Dermatitis Apply to scalp at night as needed, wash off in AM 118.28 mL 2 12/16/2022 Active Triamcinolone Acetonide 0.1 % External Ointment (Aristocort)Indic ations:Dermatitis Apply to trunk and extremities up to twice daily until improved, then taper down 80 g 2 12/16/2022 Active Methocarbamol 500 MG Oral Tablet (Robamol) Take 1 Tablet by mouth 4 times a day as needed for Muscle spasms. 0 Active amLODIPine Besylate 5 MG Oral Tablet (Norvasc) Take 1 Tablet by mouth in the morning. 90 Tablet 3 02/25/2023 Active Ketoconazole 2 % External Shampoo (Nizoral)Indicati ons:Seborrheic dermatitis Wash 1-2x a week face and scalp 120 mL 1 08/06/2023 Active Dupixent 300 MG/2ML Subcutaneous Solution Pen-injector (Dupilumab) Inject one pen under the skin every 2 weeks. 4 mL 4 08/08/2023 Active Hyoscyamine Sulfate 0.125 MG Oral Tablet (Levsin) Take by mouth 1 Tablet every 4 hours as needed for Cramping. for abdominal pain 40 Tablet 2 05/21/2022 08/19/20 23 Discontinued documented as of this encounter (statuses as of 08/19/2023) Active Problems Problem Noted Date Diagnosed Date [...] as of this encounter (statuses as of 08/19/2023) Resolved Problems Problem Noted Date Diagnosed Date Resolved Date Cervicalgia 07/03/2011 07/02/2018 Headache 07/03/2011 03/30/2018 Overview: ICD-10 update of inactive term Subjective tinnitus 12/04/2009 07/02/20 18 Temporomandibular joint diso rders, unspecified 12/04/2009 03/30/2018 RECURRENT ACUTE SINUSITIS 05/30/2008 Anxiety state 07/30/2005 02/25/2023 Menopause 01/01/2001 03/30/2018 documented as of this encounter (statuses as of 08/19/2023) Immunizations Name Administration Dates Next Due COVID-19 mRNA, LNP-s, No Pre serve, 2-Dose Series ([facility]) 07/22/2022,01/12/2022,07/03/2021,11/20,10/27/2020 Pneumococcal Conjugate Vacc, 13 Valent (Prevnar) 03/15/2015 Pneumococcal Polysaccharide PPV23 (Pneumovax) 02/23/2013 SEASONAL INFLUENZA, PF, 6 M & Above, IM , (FLULAVAL or FLUZONE) 08/07/2022,07/02/2018 Seasonal Influenza, Split, I IV3, With Preserve, Inj 07/25/2015,08/19/2014,09/03/2013 TDAP (age 11 and older)(Adacel) 03/21/2009 Varicella Zoster Vaccine (Adult) 02/03/2012 Zoster Vaccine Recombinant (Shingrix) 08/11/2018 ,04/06/2018 documented as of this encounter Social History Tobacco Use Types Packs/Day Years Used Date Smoking Tobacco: Never Smokeless Tobacco: Never Tobacco Cessation:Counseling Given: Not Answered Alcohol Use Standard Drinks/Week Comments Yes 7 [...] Sign Reading Time Taken Comments Blood Pressure 138/72 08/19/2023 9:54 AM EST Pulse 79 08/19/2023 9:54 AM EST Temperature 36.7 C (98.1 F) 08/19/2023 9:54 AM ES T Respiratory Rate - - Oxygen Saturation 98% 08/19/2023 9:54 AM EST Inhaled Oxygen Concentration - - Weight 74.4 kg (164 lb 1.6 oz) 08/19/2023 9:54 A M EST Height 163.8 cm (5' 4.5") 08/19/2023 9:54 AM EST Body Mass Index 27.73 08/19/2023 9:54 AM EST documented in this encounter Progress Notes * Efrain Clayton PA-C - 08/19/2023 9:56 AM EST Subjective: Tika Wilson is a 77 year old female. Chief Complaint Patient presents with Diarrhea Patient states loose BM x's 1 month. Patient states drank water in [place], has been upset since. Irritable Bowel Patient states sudden onset of heartburn x's 1.5 week, sudden sweating and then IBS has kicked in with discomfort in lower abdomen. HPI: 77 y/o female with IBS, GERD, HLD, IBS seen today with complaint of increased heartburn and loose bowels starting about a month ago after drinking [place] water in [place] which signs said not to drink. Lower abdominal cramping. Has tried pepto-bismol but would cause constipation. Has tried imodium. Took levsin which resolved cramping symptoms. Does not use fiber. Currently will have bowel movement every 2-3 days which is loose. Bowels are not daily. No blood. Having belching, but heartburn has down. PMH: Patient Active Problem List Diagnosis Code Irritable bowel syndrome K58.9 ADVANCE DIRECTIVE INFORMATION Allergic rhinitis J30.9 Deviated nasal septum J34.2 Esophageal reflux K21.9 Chronic pharyngitis J31.2 History of skin cancer Z85.828 Hx of actinic keratosis Z87.2 Dyslipidemia E78.5 Current Outpatient Medications Medication Sig Dispense Refill EXCEDRIN EXTRA STRENGTH 250-250-65 MG PO TABS as directed Iron-Vitamin C 100-250 MG Oral Tablet fluticasone (FLONASE) 50 MCG/ACT nasal spray 2 squirts to each nostril once a day - opp hand 1 Bottle 5 guaiFENesin ER 600 MG Oral Tablet Extended Release 12 Hour Start: 12/11/21 12:53:00 EST Azelastine HCl 0.1 % Nasal Solution Administer into nostril 1 [place] in the morning AND 1 [place] before bedtime. 30 mL 12 Enstilar 0.005-0.064 % External Foam (Calcipotriene-Betameth Diprop) Apply to scalp daily as yesuwf33 g 1 Acetaminophen ER 650 MG Oral Tablet Extended Release (Tylenol 8 Hour Arthritis Pain) Take by mouth 1 Tablet every 8 hours as needed for Pain, Moderate. 100 Tablet 3 Fluocinolone Acetonide Scalp 0.01 % External Oil ([place]-Smoothe/FS Scalp) Apply to scalp at night as needed, wash off in AM 118.28 mL 2 Triamcinolone Acetonide 0.1 % External Ointment (Aristocort) Apply to trunk and extremities up to twice daily until improved, then taper down 80 g 2 Methocarbamol 500 MG Oral Tablet (Robamol) Take 1 Tablet by mouth 4 times a day as needed for Muscle spasms. amLODIPine Besylate 5 MG Oral Tablet (Norvasc) Take 1 Tablet by mouth in the morning. 90 Tablet 3 Ketoconazole 2 % External Shampoo (Nizoral) Wash 1-2x a week face and scalp 120 mL 1 Dupixent 300 MG/2ML Subcutaneous Solution Pen-injector (Dupilumab) Inject one pen under the skin every 2 weeks. 4 mL 4 Hyoscyamine Sulfate 0.125 MG Oral Tablet (Levsin) Take by mouth 1 Tablet every 4 hours as needed for Cramping. for abdominal pain (Patient not taking: Reported on 08/19/2023) 40 Tablet 2 No current facility-administered medications for this visit. Review of patient's allergies indicates: Allergen Reactions Pollen Asthma as a child All other review of systems reviewed and negative other than mentioned in HPI. Objective: BP 138/72 | Pulse 79 | Temp 36.7 C (98.1 F) | Ht 1.638 m (5' 4.5") | Wt 74.4 kg (164 lb 1.6 oz)| SpO2 98% | BMI 27.73 kg/m | BSA 1.84 m Physical Exam Constitutional: General: She is not in acute distress. Appearance: Normal appearance. She is normal weight. She is not ill-appearing or toxic-appearing. HENT: Head: Normocephalic and atraumatic. Eyes: Extraocular Movements: Extraocular movements intact. Conjunctiva/sclera: Conjunctivae normal. Pupils: Pupils are equal, round, and reactive to light. Cardiovascular: Rate and Rhythm: Normal rate and regular rhythm. Heart sounds: Normal heart sounds. No murmur heard. No friction rub. No gallop. Pulmonary: Effort: Pulmonary effort is normal. Breath sounds: Normal breath sounds. No wheezing, rhonchi or rales. Abdominal: General: Bowel sounds are normal. There is no distension. Palpations: Abdomen is soft. There is no mass. Tenderness: There is no abdominal tenderness. There is no guarding or rebound. Neurological: Mental Status: She is alert. ASSESSMENT: Irritable bowel syndrome with both constipation and diarrhea (Primary) - GASTROINTESTINAL PATHOGEN PANEL, STOOL; Future; Expected date: 08/19/2023 - OVA AND PARASITES, CONCENTRATE AND PERMANENT SMEAR; Future; Expected date: 08/19/2023 - XR ABDOMEN 1 VIEW Suspect constipation with overflow causing symptoms. Will check stool sample given drank water she was not supposed to. Check KUB to assess stool burden. Consider miralax for clean out. Suspect if treated increased heartburn symptoms will completely resolve. Already improved for the most part. Gastroesophageal reflux disease, unspecified whether esophagitis present Efrain Clayton PA-C documented in this encounter Nursing Notes * Jaylyn Bhatt LPN - 08/19/2023 9:54 AM EST Chief Complaint Patient presents with Diarrhea Patient states loose BM x's 1 month. Patient states drank water in [place], has been upset since. Irritable Bowel Patient states sudden onset of heartburn x's 1.5 week, sudden sweating and then IBS has kicked in with discomfort in lower abdomen. documented in this encounter Plan of Treatment Upcoming Encounters Date Type Department Care Team (Late st Contact Info) Description 08/19/2023 10:40 AM EST Imaging Radiology [facility] [place] [facility] [place] [address] Arrived 08/19/2023 11:00 AM EST Laboratory Laboratory [facility] [place] [facility] [place] [id number] [facility] [place] [address] [address] [place] [address] Arrived 09/24/2023 9:40 AM EST Office Visit Family Practice [facility] [place] [facility] [place] [address] Sachin Walton III, MD 200 [facility] [place] [address] 01/29/2024 11:30 AM EDT Telemedicine Dermatology [address] [address] She[place], Pharmacist Dermatology [address] [place] [address] 03/09/2024 10:45 AM EDT Office Visit Dermatology [facility] [place] [address] [place] [address] [address] Keven Dutton MD 200 [facility] [place] [address] Pending Results Name Type Priority Associated Diagnoses Date /Time XR ABDOMEN 1 VIEW Medical Imaging Routine Irritable bowel syndrome with both constipation and diarrhea 08/19/2023 10:27 AM EST Scheduled Orders Name Type Priority Associated Diagnoses Orde r Schedule GASTROINTESTINAL PATHOGEN PANEL, STOOL Lab Routine Irritable bowel syndrome with both constipation and diarrhea Expected: 08/19/2023 (Approximate), Expires: 08/18/2024 OVA AND PARASITES, CONCENTRATE AND PERMANENT SMEAR Lab Routine Irritable bowel syndrome with both constipation and diarrhea Expected: 08/19/2023 (Approximate), Expires: 08/19/2024 Scheduled Procedures Name Priority Associated Diagnoses Date/Ti [...] Completed 03/15/2015, 02/23/2013 Zoster Vaccines Completed 08/11/2018, 07/0 11/2017, 02/03/2012 COLONOSCOPY-EVERY 3 YRS AGES 18-100 [...] as of this encounter Visit Diagnoses Diagnosis Irritable bowel syndrome with both constipation and diarrhea- Primary Gastroesophageal reflux disease, unspecified whether esophagitis present documented in this encounter Care Teams Custom Car Builder Relationship Specialty Start Date End Date Sachin Walton III, MD 200 [facility] [place] [address] PCP - General 01/04/02 documented as of this encounter
--- OUTSIDE RECORDS SUMMARY | 2023-10-23 13:43 | External Medical Summary | Summary of Care ---
Author Name Unknown Organization [facility] Address [address] [place] [address] Phone [phone] Care Team Providers Care Senior Technical Writer Name Role Phone Isabelle LIRA MD, Sachin Chang Primary Care Provider [phone] Reason for Visit * Reason Comments Medication Refill Encounter Details Date Type Department Care Team (Late st Contact Info) Description 08/08/2023 Refill Dermatology [facility] [place] [address] [place], [place] [id number] Cheryl Gomez MD [address] [facility] [place] [address] Allergies Active Allergy Reactions Criticality Noted Date Comments Pollen 08/18/2014 Asthma as a child documented as of this encounter (statuses as of 08/08/2023) Medications Medication Sig Dispensed Refills Start Date [...] % Nasal Solution Administer into nostril 1 [place] in the morning AND 1 [place] before bedtime. 30 mL 12 02/21/2022 Active Enstilar 0.005-0.064 % External Foam (Calcipotriene-Bet ameth Diprop)Indications :Psoriasis Apply to scalp daily as needed 60 g 1 03/08/2022 Active Hyoscyamine Sulfate 0.125 MG Oral Tablet (Levsin) Take by mouth 1 Tablet every 4 hours as needed for Cramping. for abdominal pain 40 Tablet 2 05/21/2022 Active Acetaminophen ER 650 MG Oral Tablet Extended Release (Tylenol 8 Hour Arthritis Pain) Take by mouth 1 Tablet every 8 hours as needed for Pain, Moderate. 100 Tablet 3 05/21/2022 Active Fluocinolone Acetonide Scalp 0.01 % External Oil ([place]-Smoothe/FS Scalp)Indications: Dermatitis Apply to scalp at night [...] 02/25/2023 Active Ketoconazole 2 % External Shampoo (Nizoral)Indicatio ns:Seborrheic dermatitis Wash 1-2x a week face and scalp 120 mL 1 08/06/2023 Active Dupixent 300 MG/2ML Subcutaneous Solution Pen-injector (Dupilumab) Inject one pen under the skin every 2 weeks. 4 mL 4 08/08/2023 Active Dupixent 300 MG/2ML Subcutaneous Solution Pen-injector (Dupilumab) Inject one pen under the skin every 2 weeks. 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 Irritable bowel syndrome 01/01/2001 Allergic rhinitis Deviated nasal septum documented as of this encounter (statuses as of 08/08/2023) Resolved Problems Problem Noted Date Diagnosed Date Resolved Date Cervicalgia 07/03/2011 07/02/2018 Headache 07/03/2011 03/30/2018 Overview: ICD-10 update of inactive term Subjective tinnitus 12/04/2009 07/02/20 18 Temporomandibular joint diso rders, unspecified 12/04/2009 03/30/2018 RECURRENT ACUTE SINUSITIS 05/30/2008 Anxiety state 07/30/2005 02/25/2023 Menopause 01/01/2001 03/30/2018 documented as of this encounter (statuses as of 08/08/2023) Immunizations Name Administration Dates Next Due COVID-19 mRNA, LNP-s, No Pre serve, 2-Dose Series (Pfizer) 07/22/2022,01/12/2022,07/03/2021,11/20,10/27/2020 Pneumococcal Conjugate Vacc, 13 Valent (Prevnar) [...] encounter Miscellaneous Notes * Telephone Encounter - Cheryl Gomez MD - 08/08/2023 1:17 PM EDTSigned Prescriptions: Disp Refills Dupixent 300 MG/2ML Subcutaneous Solution *4 mL 4 Sig: Inject one pen under the skin every 2 weeks. Authorizing Provider: CHERYL GOMEZ * Telephone Encounter - Adrianne Shields OSA - 08/08/2023 9:37 AM EDTPending Prescriptions: Disp Refills Dupixent 300 MG/2ML Subcutaneous Solution *4 mL 4 Sig: Inject one pen under the skin every 2 weeks. documented in this encounter Plan of Treatment Upcoming Encounters Date Type Department Care Team (Late st Contact Info) Description 09/24/2023 9:40 AM EST Office Visit Family Practice [facility] [place] [address] [place] [address] Sachin Walton III, MD [address] [place], [place] [address] 01/29/2024 11:30 AM EDT Telemedicine Dermatology [address] [place] [address] [place], Pharmacist Dermatology [address] [place] [address] 03/09/2024 10:45 AM EDT Office Visit Dermatology [facility] [place] [address] [facility] [address] Keven Dutton MD [address] [facility] [address] Scheduled Procedures Name Priority Associated Diagnoses Date/Ti [...] filedocumented as of this encounter Care Teams Senior Technical Writer Relationship Specialty Start Date End Date Isabelle LIRA, Sachin Chang MD 200 [place] [address] PCP - General 01/04/02 documented as of this encounter
--- OUTSIDE RECORDS SUMMARY | 2023-10-23 13:43 | External Medical Summary | Summary of Care ---
Author Name Unknown Organization [facility] Address [address] [place] [address] Phone [phone] Care Team Providers Care Chicken And Fish Butcher Name Role Phone Isabelle LIRA MD, Sachin Chang Primary Care Provider [phone] Reason for Visit * Reason Comments Outpatient Testing Encounter Details Date Type Department Care Team (Late st Contact Info) Description 08/20/2023 10:10 AM EST Laboratory [facility] [address] [place] [phone] Bob White, Lab Scenery [address] [facility] [place] [address] Irritable bowel syndrome with both constipation and diarrhea Allergies Active Allergy Reactions Criticality Noted Date Comments Pollen 08/18/2014 Asthma as a child documented as of this encounter (statuses as of 08/20/2023) Medications Medication Sig Dispensed Refills Start Date [...] % Nasal Solution Administer into nostril 1 [place] in the morning AND 1 [place] before bedtime. 30 mL 12 02/21/2022 Active [...] Fluocinolone Acetonide Scalp 0.01 % External Oil ([place]-Smoothe/FS Scalp)Indications:D ermatitis Apply to scalp at night [...] 02/25/2023 Active Ketoconazole 2 % External Shampoo (Nizoral)Indication s:Seborrheic dermatitis Wash 1-2x a week face and scalp 120 mL 1 08/06/2023 Active Dupixent 300 MG/2ML Subcutaneous Solution Pen-injector (Dupilumab) Inject one pen under the skin every 2 weeks. 4 mL 4 08/08/2023 Active documented as of this encounter (statuses as of 08/20/2023) Active Problems Problem Noted Date Diagnosed Date [...] as of this encounter (statuses as of 08/20/2023) Resolved Problems Problem Noted Date Diagnosed Date Resolved Date Cervicalgia 07/03/2011 07/02/2018 Headache 07/03/2011 03/30/2018 Overview: ICD-10 update of inactive term Subjective tinnitus 12/04/2009 07/02/20 18 Temporomandibular joint diso rders, unspecified 12/04/2009 03/30/2018 RECURRENT ACUTE SINUSITIS 05/30/2008 Anxiety state 07/30/2005 02/25/2023 Menopause 01/01/2001 03/30/2018 documented as of this encounter (statuses as of 08/20/2023) Immunizations Name Administration Dates Next Due COVID-19 [...] on file documented as of this encounter Plan of Treatment Upcoming Encounters Date Type Department Care Team (Late st Contact Info) Description 09/24/2023 9:40 AM EST Office Visit Family Practice [facility] [place] [address] [place] [address] Sachin Walton III, MD 200 [facility] [place] [address] 01/29/2024 11:30 AM EDT Telemedicine Dermatology [address] [address] [place], Pharmacist Dermatology [address] [place] [address] 03/09/2024 10:45 AM EDT Office Visit Dermatology [facility] [place] 200 [place] [address] Keven Dutton MD 200 [facility] [place], [place] [address] Pending Results Name Type Priority Associated Diagnoses Date /Time OVA AND PARASITES, CONCENTRATE AND PERMANENT SMEAR Lab Routine Irritable bowel syndrome with both constipation and diarrhea 08/20/2023 10:04 AM EST GASTROINTESTINAL PATHOGEN PANEL, STOOL Lab Routine Irritable bowel syndrome with both constipation and diarrhea 08/20/2023 10:05 AM EST GASTROINTESTINAL PATHOGEN PANEL PCR Lab Routine Irritable bowel syndrome with both constipation and diarrhea 08/20/2023 10:05 AM EST GASTROINTESTINAL PATHOGEN PANEL CULTURE Lab Routine Irritable bowel syndrome with both constipation and diarrhea 08/20/2023 10:05 AM EST Scheduled Procedures Name Priority Associated Diagnoses Date/Ti [...] bowel syndrome with both constipation and diarrhea documented in this encounter Additional Health Concerns Infection Onset Date Last Indicated Resolved Time Gastrointestinal Rule-Out 08/20/2023 08/20/2023 documented as of this encounter Care Teams Chicken And Fish Butcher Relationship Specialty Start Date End Date Sachin Walton III, MD 200 [facility] [place] [address] PCP - General 01/04/02 documented as of this encounter
--- OUTSIDE RECORDS SUMMARY | 2023-10-23 13:43 | External Medical Summary | Summary of Care ---
Author Name Unknown Organization [facility] Address [address] [place] [address] Phone [phone] Care Team Providers Care Real Time Analyst Name Role Phone Isabelle LIRA MD, Sachin Chang Primary Care Provider [phone] Reason for Visit * Reason Onset Date Comments Test Results 09/04/2023 Encounter Details Date Type Department Care Team (Late st Contact Info) Description 09/04/2023 Telephone General Internal Medicine [facility] [place] [address] [place] [address] Keven Kumar MD [address] [place] [address] Test Results Allergies Active Allergy Reactions Criticality Noted Date Comments Pollen 08/18/2014 Asthma as a child documented as of this encounter (statuses as of 09/04/2023) Medications Medication Sig Dispensed Refills Start Date [...] % Nasal Solution Administer into nostril 1 [place] in the morning AND 1 [place] before bedtime. 30 mL 12 02/21/2022 Active [...] Fluocinolone Acetonide Scalp 0.01 % External Oil ([place]-Smoothe/FS Scalp)Indications:D ermatitis Apply to scalp at night [...] as of this encounter (statuses as of 09/04/2023) Active Problems Problem Noted Date Diagnosed Date [...] as of this encounter (statuses as of 09/04/2023) Resolved Problems Problem Noted Date Diagnosed Date Resolved Date Cervicalgia 07/03/2011 07/02/2018 Headache 07/03/2011 03/30/2018 Overview: ICD-10 update of inactive term Subjective tinnitus 12/04/2009 07/02/20 18 Temporomandibular joint diso rders, unspecified 12/04/2009 03/30/2018 RECURRENT ACUTE SINUSITIS 05/30/2008 Anxiety state 07/30/2005 02/25/2023 Menopause 01/01/2001 03/30/2018 documented as of this encounter (statuses as of 09/04/2023) Immunizations Name Administration Dates Next Due COVID-19 mRNA, LNP-s, No Pre serve, 2-Dose Series (ChartITright) 07/22/2022,01/12/2022,07/03/2021,11/20,10/27/2020 Pneumococcal Conjugate Vacc, 13 Valent (Prevnar) [...] encounter Miscellaneous Notes * Telephone Encounter - Soto Canales, BEBE - 09/04/2023 9:08 AM EST The pt stated she is feeling much better, the abdominal pain has passed, and she is back to her normal bowel regimen * Telephone Encounter - Soto Canales LPN - 09/04/2023 9:08 AM EST ----- Message from Keven Kumar MD sent at 08/29/2023 8:25 AM EST ----- Stool studies ok, check status documented in this encounter Plan of Treatment Upcoming Encounters Date Type Department Care Team (Late st Contact Info) Description 09/24/2023 9:40 AM EST Office Visit Family Practice [facility] [address] [place] [address] Sachin Walton III, MD [address] [place] [address] 01/29/2024 11:30 AM EDT Telemedicine Dermatology [address] [address] [place], Pharmacist Dermatology [address] [place] [address] 03/09/2024 10:45 AM EDT Office Visit Dermatology [facility] [address] [place] [address] Keven Dutton MD [address] [place] [address] Scheduled Procedures Name Priority Associated Diagnoses Date/Ti [...] filedocumented as of this encounter Care Teams Real Time Analyst Relationship Specialty Start Date End Date Sachin Walton III, MD [address] [place] [address] PCP - General 01/04/02 documented as of this encounter
--- OUTSIDE RECORDS SUMMARY | 2023-10-23 13:43 | External Medical Summary ---
Author Name Unknown Address Unknown Organization : Laboratory Report Ordering Provider Test Date Status CARRIE HERNANDEZ 08/20/2023 10:04:59 Final Observation Date Value Abnormality Reference (Units ) Status Ova and parasites identified in Stool by Trichrome stain--3rd specimen 08/20/2023 10:04:59 SEE BELOW Final Ova and Parasites, Concentra te and Permanent Smear
Examination for Ova and Parasites
SOURCE : STOOL
Result/Comment:
NO OVA AND PARASITES SEEN.
Reference Range: No Ova and Parasites seen
Routine Ova and Parasite Exam may not detect some
parasites that occasionally cause diarrheal illness.
Cryptosporidium Antigen and/or Cyclospora and Isospora
Exam may be ordered to detect these parasites.
One negative sample does not necessarily rule out the
presence of a parasitic infection.
Assay performed by wet mount after concentration.
Parasite Exam, Trichrome Stain
SOURCE : STOOL
Result/Comment:
NO OVA AND PARASITES SEEN.
Routine Ova and Parasite Exam may not detect some
parasites that occasionally cause diarrheal illness.
Cryptosporidium Antigen and/or Cyclospora and Isospora
Exam may be ordered to detect these parasites.
One negative sample does not necessarily rule out the
presence of a parasitic infection.
For additional information, please refer to
https://education.[employer]/faq/PYB248
(This link is being provided for informational/
educational purposes only.)

Test Performed at:
[facility]
[address] [facility]
[place] [address]
Joe Arevalo M.D., Ph.D.,Director of Laboratories Performing Location
--- OUTSIDE RECORDS SUMMARY | 2023-10-23 13:43 | External Medical Summary | Summary of Care ---
Author Name Unknown Organization [facility] Address [address] [place] [address] Phone [phone] Care Team Providers Care Butt Maker Name Role Phone Isabelle LIRA MD, Sachin Cahng Primary Care Provider [phone] Reason for Visit * Reason Comments Outpatient Testing Encounter Details Date Type Department Care Team (Late st Contact Info) Description 08/19/2023 11:00 AM EST Laboratory Laboratory [facility] [place] [address] [place] [id number] [facility] [address] [place] [address] Arrived Allergies Active Allergy Reactions Criticality Noted Date [...] % Nasal Solution Administer into nostril 1 [place] in the morning AND 1 [place] before bedtime. 30 mL 12 02/21/2022 Active [...] Fluocinolone Acetonide Scalp 0.01 % External Oil ([place]-Smoothe/FS Scalp)Indications:D ermatitis Apply to scalp at night [...] mRNA, LNP-s, No Pre serve, 2-Dose Series (HungerTime) 07/22/2022,01/12/2022,07/03/2021,11/20,10/27/2020 Pneumococcal Conjugate Vacc, 13 Valent (Prevnar) [...] Description 08/19/2023 10:40 AM EST Imaging Radiology [facility] [place] [address] [place] [address] Arrived 09/24/2023 9:40 AM EST Office Visit Family Practice [facility] [place] [address] [facility] [place] [address] Sachin Walton III, MD [address] [facility] [place] [address] 01/29/2024 11:30 AM EDT Telemedicine Dermatology [address] [address] [place], Pharmacist Dermatology [address] [place] [address] 03/09/2024 10:45 AM EDT Office Visit Dermatology [facility] [place] [address] [facility] [place] [address] Keven Dutton MD [address] [facility] [place] [address] Scheduled Procedures Name Priority Associated Diagnoses Date/Ti [...] filedocumented as of this encounter Care Teams Butt Maker Relationship Specialty Start Date End Date Sachin Walton III, MD [address] [place] [address] PCP - General 01/04/02 documented as of this encounter
--- OUTSIDE RECORDS SUMMARY | 2023-10-23 13:43 | External Medical Summary ---
Author Name Unknown Address Unknown Organization K01:[facility] - [address] [facility] [address] [place] [id number] Laboratory Report Ordering Provider Test Date Status CARRIE HERNANDEZ 08/20/2023 10:05:08 Final Observation Date Value Abnormality Reference (Units) Status Bacteria identified in Specimen by Culture 08/20/2023 10:05:08 No Aeromonas species or Plesiomonas species isolated. Final Test: Gastrointestinal Patho gen Panel Culture
Specimen Source: Stool
Specimen Type: Stool
Specimen Date: 08/20/2023 10:05 AM
Result Date: 08/22/2023 10:00 AM
Result Status: Final result
Resulting Lab: [facility]
[address]
[place] [id number]

CULTURE

No Aeromonas species or Plesiomonas species isolated.

null Performing Location [facility] - [address] [facility] [address]
--- OUTSIDE RECORDS SUMMARY | 2023-10-23 13:43 | External Medical Summary | Summary of Care ---
Author Name Unknown Organization [facility] Address [address] [facility] [place] [address] Phone [phone] Care Team Providers Care Sales Outfitter Name Role Phone Isabelle LIRA MD, Sachin Chang Primary Care Provider [phone] Reason for Visit * Reason Onset Date Comments Precert Approved 07/15/2023 DUPIXENT Encounter Details Date Type Department Care Team (Late st Contact Info) Description 07/15/2023 Telephone Dermatology [facility] [address] [place] [address] Cheryl Clark MD Precert Approved ( DUPIXENT) Allergies Active Allergy Reactions Criticality Noted Date Comments Pollen 08/18/2014 Asthma as a child documented as of this encounter (statuses as of 10/14/2023) Medications Medication Sig Dispensed Refills Start Date End Date Status EXCEDRIN EXTRA STRENGTH 250-250-65 MG PO TABS as directed 0 Active Iron-Vitamin C 100-250 MG Oral Tablet 0 Active fluticasone (FLONASE) 50 MCG/ACT nasal spray 2 squirts to each nostril once a day - opp hand 1 Bottle 5 9 Active guaiFENesin ER 600 MG Oral Tablet Extended Release 12 Hour Start: 12/11/21 12:53:00 EST 0 2 Active Azelastine HCl 0.1 % Nasal Solution Administer into nostril 1 [place] in the morning AND 1 [place] before bedtime. 30 mL 12 2 Active Enstilar 0.005-0.064 % External Foam (Calcipotriene-B etameth Diprop)Indicatio ns:Psoriasis Apply to scalp daily as needed 60 g 1 2 Active Acetaminophen ER 650 MG Oral Tablet Extended Release (Tylenol 8 Hour Arthritis Pain) Take by mouth 1 Tablet every 8 hours as needed for Pain, Moderate. 100 Tablet 3 2 Active Fluocinolone Acetonide Scalp 0.01 % External Oil ([place]-Smoothe/F S Scalp)Indication s:Dermatitis Apply to scalp at night as needed, wash off in AM 118.28 mL 2 3 Active Triamcinolone Acetonide 0.1 % External Ointment (Aristocort)Charline cations:Dermatit is Apply to trunk and extremities up to twice daily until improved, then taper down 80 g 2 3 Active Methocarbamol 500 MG Oral Tablet (Robamol) Take 1 Tablet by mouth 4 times a day as needed for Muscle spasms. 0 Active Hyoscyamine Sulfate 0.125 MG Oral Tablet (Levsin) Take by mouth 1 Tablet every 4 hours as needed for Cramping. for abdominal pain 40 Tablet 2 2 08/19/20 23 Discontinued Dupixent 300 MG/2ML Subcutaneous Solution Pen-injector (Dupilumab) Inject one pen under the skin every 2 weeks. 4 mL 4 3 08/08/20 23 Discontinued(Ref ill) amLODIPine Besylate 5 MG Oral Tablet (Norvasc) Take 1 Tablet by mouth in the morning. 90 Tablet 3 3 09/24/20 23 Discontinued(Ref ill) documented as of this encounter (statuses as of 10/14/2023) Active Problems Problem Noted Date Diagnosed Date [...] as of this encounter (statuses as of 10/14/2023) Resolved Problems Problem Noted Date Diagnosed Date Resolved Date Cervicalgia 07/03/2011 07/02/2018 Headache 07/03/2011 03/30/2018 Overview: ICD-10 update of inactive term Subjective tinnitus 12/04/2009 07/02/20 18 Temporomandibular joint diso rders, unspecified 12/04/2009 03/30/2018 RECURRENT ACUTE SINUSITIS 05/30/2008 Anxiety state 07/30/2005 02/25/2023 Menopause 01/01/2001 03/30/2018 documented as of this encounter (statuses as of 10/14/2023) Immunizations Name Administration Dates Next Due COVID-19 mRNA, LNP-s, No Pre serve, 2-Dose Series (adMingle - Share Your Passion!) 07/22/2022,01/12/2022,07/03/2021,11/20,10/27/2020 Pneumococcal Conjugate Vacc, 13 Valent (Prevnar) [...] encounter Miscellaneous Notes * Telephone Encounter - Lary Mancia CPhT - 07/15/2023 11:18 AM EDT New or re-auth: re-auth Patient Tika Wilson needs a prior authorization for their Dupixent through their [employer] insurance. ID: [id number] BIN:[id number] PCN:[id number] Target ship date is 07/21. Thank you very much, Lary Mancia [facility] 07/15/2023,11:20 AM documented in this encounter Plan of Treatment Upcoming Encounters Date Type Department Care Team (Late st Contact Info) Description 01/29/2024 11:30 AM EDT Telemedicine Dermatology [address] [address] [place], Pharmacist Dermatology [address] [place] [address] 03/09/2024 10:45 AM EDT Office Visit Dermatology [address] [place] [address] Keven Dutton MD [address] [place] [address] 03/25/2024 9:20 AM EDT Office Visit Family Practice [address] [place] [address] Sachin Walton III, MD [address] [place] [address] Scheduled Procedures Name Priority Associated Diagnoses Date/Ti [...] Not on filedocumented as of this encounter Additional Health Concerns Infection Onset Date Last Indicated Resolved Time Gastrointestinal Rule-Out 08/20/2023 08/20/2023 7:58 AM EST documented as of this encounter Care Teams Sales Outfitter Relationship Specialty Start Date End Date Sachin Walton III, MD [address] [place] [address] PCP - General 01/04/02 documented as of this encounter
--- OUTSIDE RECORDS SUMMARY | 2023-10-23 13:43 | External Medical Summary | Summary of Care ---
Author Name Unknown Organization [facility] Address [address] [place] [address] Phone [phone] Care Team Providers Care Educational Sign Language Interpreter Name Role Phone Isabelle LIRA MD, Sachin Chang Primary Care Provider [phone] Reason for Visit * Reason Onset Date Comments Test Results 09/04/2023 Encounter Details Date Type Department Care Team (Late st Contact Info) Description 09/04/2023 Telephone General Internal Medicine [facility] [place] [address] [facility] [place] [address] Keven Kumar MD [address] [facility] [place] [address] Test Results Allergies Active Allergy Reactions Criticality [...] % Nasal Solution Administer into nostril 1 [place] in the morning AND 1 [place] before bedtime. 30 mL 12 02/21/2022 Active [...] Fluocinolone Acetonide Scalp 0.01 % External Oil ([place]-Smoothe/FS Scalp)Indications:D ermatitis Apply to scalp at night [...] mRNA, LNP-s, No Pre serve, 2-Dose Series ([employer]) 07/22/2022,01/12/2022,07/03/2021,11/20,10/27/2020 Pneumococcal Conjugate Vacc, 13 Valent (Prevnar) [...] 9:40 AM EST Office Visit Family Practice [facility] [address] [facility] [place] [address] Sachin Walton III, MD [address] [facility] [place] [address] 01/29/2024 11:30 AM EDT Telemedicine Dermatology [address] [address] [place], Pharmacist Dermatology [address] [place] [address] 03/09/2024 10:45 AM EDT Office Visit Dermatology [facility] [address] [facility] [place] [address] Keven Dutton MD [address] [facility] [place] [address] Scheduled Procedures Name Priority Associated Diagnoses Date/Ti [...] filedocumented as of this encounter Care Teams Educational Sign Language Interpreter Relationship Specialty Start Date End Date Sachin Walton III, MD [address] [place] [address] PCP - General 01/04/02 documented as of this encounter
--- OUTSIDE RECORDS SUMMARY | 2023-10-23 13:43 | External Medical Summary | Summary of Care ---
Author Name Unknown Organization [facility] Address [address] [place] [address] Phone [phone] Care Team Providers Care Gas Pumper Name Role Phone Isabelle LIRA MD, Sachin Chang Primary Care Provider [phone] Encounter Details Date Type Department Care Team ([facility] st Contact Info) Description 08/08/2023 Specialty Pharmacy [facility], [address] [address] Medication, [facility] Specialty Refill, [address] [address] Allergies Active Allergy Reactions Criticality Noted Date [...] % Nasal Solution Administer into nostril 1 [place] in the morning AND 1 [place] before bedtime. 30 mL 12 2 Active [...] Fluocinolone Acetonide Scalp 0.01 % External Oil ([place]-Smoothe/F S Scalp)Indication s:Dermatitis Apply to scalp at [...] 0 Active Ketoconazole 2 % External Shampoo (Nizoral)Indicat ions:Seborrheic dermatitis Wash 1-2x a week face and scalp 120 mL 1 3 Active Hyoscyamine Sulfate 0.125 MG Oral Tablet [...] mRNA, LNP-s, No Pre serve, 2-Dose Series (NCTech) 07/22/2022,01/12/2022,07/03/2021,11/20,10/27/2020 Pneumococcal Conjugate Vacc, 13 Valent (Prevnar) [...] as of this encounter Progress Notes * Tessy Ulloa CPhT - 08/08/2023 9:22 AM EDT Prescribed medication: Medication: Dupixent Shipment date: 08/12 pending refills Delivery method: Specialty Mail Location Medication Delivered too? Home Address: [address] [place] [address] [place] [address] Tessy Ulloa CPhT [facility] 08/08/2023,9:22 AM documented in this encounter Plan of Treatment Upcoming Encounters Date Type Department Care Team (Late st Contact Info) Description 01/29/2024 11:30 AM EDT Telemedicine Dermatology [address] [address] [place], Pharmacist Dermatology [address] [place] [address] 03/09/2024 10:45 AM EDT Office Visit Dermatology [facility] [address] [place] [address] Keven Dutton MD [address] [place] [address] [place] [address] 03/25/2024 9:20 AM EDT Office Visit [facility] [place] [address] [facility] [place] [address] Sachin Walton III, MD [address] [place] [address] [place] [address] Scheduled Procedures Name Priority Associated Diagnoses Date/Ti [...] Additional history exists DXA Scan 06/04/2029 06/04/2022, 070 02/2017, 03/08/2013 DTaP,Tdap,and Td Vaccines (3 - [...] documented as of this encounter Care Teams Gas Pumper Relationship Specialty Start Date End Date Sachin Walton III, MD [address] [facility] [place] [address] PCP - General 01/04/02 documented as of this encounter
--- OUTSIDE RECORDS SUMMARY | 2023-10-23 13:43 | External Medical Summary | Summary of Care ---
Author Name Unknown Organization [facility] Address [address] [place] [address] Phone [phone] Care Team Providers Care Music Cataloguer Name Role Phone Isabelle LIRA MD, Sachin Chang Primary Care Provider [phone] Reason for Visit * Reason Comments Follow Up Pt here regarding sk in issues being treated with dupixent. States scalp is doing very well but ears and on eye lid are still scaly. Encounter Details Date Type Department Care Team (Late st Contact Info) Description 08/06/2023 10:45 AM EDT Office Visit Dermatology [facility] [address] [facility] [place] [address] Cheryl Clark MD [address] [facility] [place] [address] Dermatitis*; Seborrheic dermatitis Allergies Active Allergy Reactions Criticality Noted Date Comments Pollen 08/18/2014 Asthma as a child documented as of this encounter (statuses as of 08/06/2023) Medications Medication Sig Dispensed Refills Start Date [...] % Nasal Solution Administer into nostril 1 Mclean in the morning AND 1 Mclean before bedtime. 30 mL 12 02/21/2022 Active [...] Fluocinolone Acetonide Scalp 0.01 % External Oil ([place]-Smoothe/FS Scalp)Indications:D ermatitis Apply to scalp at night as needed, wash off in AM 118.28 mL 2 12/16/2022 Active Triamcinolone Acetonide 0.1 % External Ointment (Aristocort)Indicat ions:Dermatitis Apply to trunk and extremities up to twice daily until improved, then taper down 80 g 2 12/16/2022 Active Dupixent 300 MG/2ML Subcutaneous Solution Pen-injector (Dupilumab) Inject one pen under the skin every 2 weeks. 4 mL 4 01/28/2023 Active Methocarbamol 500 MG Oral Tablet (Robamol) Take 1 Tablet by mouth 4 times a day as needed for Muscle spasms. 0 Active amLODIPine Besylate 5 MG Oral Tablet (Norvasc) Take 1 Tablet by mouth in the morning. 90 Tablet 3 02/25/2023 Active Ketoconazole 2 % External Shampoo (Nizoral)Indication s:Seborrheic dermatitis Wash 1-2x a week face and scalp 120 mL 1 08/06/2023 Active documented as of this encounter (statuses as of 08/06/2023) Active Problems Problem Noted Date Diagnosed Date [...] as of this encounter (statuses as of 08/06/2023) Resolved Problems Problem Noted Date Diagnosed Date Resolved Date Cervicalgia 07/03/2011 07/02/2018 Headache 07/03/2011 03/30/2018 Overview: ICD-10 update of inactive term Subjective tinnitus 12/04/2009 07/02/20 18 Temporomandibular joint diso rders, unspecified 12/04/2009 03/30/2018 RECURRENT ACUTE SINUSITIS 05/30/2008 Anxiety state 07/30/2005 02/25/2023 Menopause 01/01/2001 03/30/2018 documented as of this encounter (statuses as of 08/06/2023) Immunizations Name Administration Dates Next Due COVID-19 mRNA, LNP-s, No Pre serve, 2-Dose Series ([employer]) 07/22/2022,01/12/2022,07/03/2021,11/20,10/27/2020 Pneumococcal Conjugate Vacc, 13 Valent (Prevnar) [...] as of this encounter Progress Notes * Cheryl Clark MD - 08/06/2023 10:44 AM EDT SUBJECTIVE: History of Present Illness: Tika Wilson is a 77 year old female seen today for follow up of dermatitis. Date Last Appointment: 12/16/2022 (in office), Visit date not found (telemedicine) Pt on dupixent x 6 months, scalp is clear, ears and brows still sometimes scaly and itchy. Not using topicals often. Skin check scheduled 2023 REVIEW OF SYSTEMS: SKIN: No other new or changing moles. HEME/LYMPH: No new or enlarging lumps or bumps. MEDICA TIONS: Current Outpatient Medications Medication Sig Dispense Refill [...] % Nasal Solution Administer into nostril 1 Mclean in the morning AND 1 Mclean before bedtime. 30 mL 12 Enstilar 0.005-0.064 % External Foam (Calcipotriene-Betameth Diprop) Apply to scalp daily as [id number] g 1 Hyoscyamine Sulfate 0.125 MG Oral Tablet (Levsin) Take by mouth 1 Tablet every 4 hours as needed for Cramping. for abdominal pain 40 Tablet 2 Acetaminophen ER 650 MG Oral Tablet Extended Release (Tylenol 8 Hour Arthritis Pain) Take by mouth 1 Tablet every 8 hours as needed for Pain, Moderate. 100 Tablet 3 Fluocinolone Acetonide Scalp 0.01 % External Oil ([place]-Smoothe/FS Scalp) Apply to scalp at night as needed, wash off in AM 118.28 mL 2 Triamcinolone Acetonide 0.1 % External Ointment (Aristocort) Apply to trunk and extremities up to twice daily until improved, then taper down 80 g 2 Dupixent 300 MG/2ML Subcutaneous Solution Pen-injector (Dupilumab) Inject one pen under the skin every 2 weeks. 4 mL 4 Methocarbamol 500 MG Oral Tablet (Robamol) Take 1 Tablet by mouth 4 times a day as needed for Muscle spasms. amLODIPine Besylate 5 MG Oral Tablet (Norvasc) Take 1 Tablet by mouth in the morning. 90 Tablet 3 No current facility-administered medications for this visit. ALLERG IES: Pollen OBJECTIVE: GEN: Healthy, alert, no distress, appears oriented, pleasant, and cooperative. SKIN: Detailed exam of hair, face including lids and lips, and neck completed and are normal except: 1. Brows are a bit scaly, R>L ear scaly eroded plaques ASSESS MENT/PLAN: 1. Dermatitis, some crow derm and trauma component Dermatitis Patient Assessment Condition Severity: moderate Current Clinical Status: Improved olivia on scalp The patient's IGA score is: 2 - Mild, ears still moderate at times Escalation of Treatment within/to Systemic Therapy Indicated: No Treatment Plan: Con't dupixent 300 mg SQ every other week, pt tolerating well Restart DS oil nightly as needed to brows and ears as needed, add keto shampoo 1-2x a week to face/scalp. Follow-up: as scheduled spring skin check There were no barriers tolearning and no other pain was related to today's visit. The patient and/or person accompanying patient demonstrates understanding of the visit and treatment. Cheryl Clark MD 08/06/2023 10:44 AM documented in this encounter Nursing Notes * Laura Maki LPN - 08/06/2023 10:32 AM EDT Patient identified by name and date of . Do you have any concerns about pain management for today's visit? No Living Will or Advance Directive for Health Care as noted on problem list. [employer] [facility] is a way you can talk to your provider online through e-mail. Would you like to sign up? I can activate it for you? ALREADY ACTIVE Chief Complaint Patient presents with Follow Up Pt here regarding skin issues being treated with dupixent. States scalp is doing very well but earsand on eye lid are still scaly. documented in this encounter Plan of Treatment Upcoming Encounters Date Type Department Care Team (Late st Contact Info) Description 09/24/2023 9:40 AM EST Office Visit Family Practice [facility] [address] [facility] [place] [address] Sachin Walton III, MD [address] [facility] [place] [address] 01/29/2024 11:30 AM EDT Telemedicine Dermatology [address] [address] [place], Pharmacist Dermatology [address] [place] [address] 03/09/2024 10:45 AM EDT Office Visit Dermatology [facility] [address] [facility] [place] [address] Keven Dutton MD [address] [facility] [place] [address] Scheduled Procedures Name Priority Associated Diagnoses Date/Ti [...] as of this encounter Visit Diagnoses Diagnosis Dermatitis- Primary Contact dermatitis and other eczema, due to unspecified cause Seborrheic dermatitis Seborrheic dermatitis, unspecified documented in this encounter Care Teams Music Cataloguer Relationship Specialty Start Date End Date Sachin Walton III, MD [address] [place] [address] PCP - General 01/04/02 documented as of this encounter
--- OUTSIDE RECORDS SUMMARY | 2023-10-23 13:43 | External Medical Summary | Summary of Care ---
Author Name Unknown Organization [facility] Address [address] [place] [address] Phone [phone] Care Team Providers Care Storage Garage Manager Name Role Phone Isabelle LIRA MD, Sachin Chang Primary Care Provider [phone] Encounter Details Date Type Department Care Team ([facility] st Contact Info) Description 08/08/2023 Specialty Pharmacy [facility], [address] [address] Medication, [facility] Specialty Refill, [address] [address] Allergies Active Allergy Reactions Criticality Noted Date [...] % Nasal Solution Administer into nostril 1 Sage in the morning AND 1 Sage before bedtime. 30 mL 12 02/21/2022 Active [...] Fluocinolone Acetonide Scalp 0.01 % External Oil ([place]-Smoothe/FS Scalp)Indications:D ermatitis Apply to scalp at night [...] mRNA, LNP-s, No Pre serve, 2-Dose Series ([employer]) 07/22/2022,01/12/2022,07/03/2021,11/20,10/27/2020 Pneumococcal Conjugate Vacc, 13 Valent (Prevnar) [...] Mail Location Medication Delivered too? Home Address: [address] [place] [address] [place] [address] Tessy Ulloa CPhT [facility] 08/08/2023,9:22 AM documented in this encounter Plan of Treatment Upcoming Encounters Date Type Department Care Team (Late st Contact Info) Description 09/24/2023 9:40 AM EST Office Visit Family Practice [facility] [place] [address] [facility] [place] [address] Sachin Walton III, MD [address] [facility] [place] [address] 01/29/2024 11:30 AM EDT Telemedicine Dermatology [facility] [address] [place] [address] [place], Pharmacist Dermatology [address] [place] [address] 03/09/2024 10:45 AM EDT Office Visit Dermatology [facility] [place] [address] [facility] [place] [address] Keven Dutton MD [address] [facility] [place] [address] Scheduled Procedures Name Priority Associated Diagnoses Date/Ti [...] filedocumented as of this encounter Care Teams Storage Garage Manager Relationship Specialty Start Date End Date Sachin Walton III, MD [address] [place] [address] PCP - General 01/04/02 documented as of this encounter
--- OUTSIDE RECORDS SUMMARY | 2023-10-23 13:44 | External Medical Summary | Summary of Care ---
Author Name Unknown Organization [facility] Address [address] [place] [address] Phone [phone] Care Team Providers Care Repairer General Name Role Phone Isabelle LIRA MD, Sachin Chang Primary Care Provider [phone] Encounter Details Date Type Department Care Team Description 06/10/2023 Specialty Pharmacy [facility], [address] [address] Medication, [facility] Specialty Refill, [address] [address] Allergies Active Allergy Reactions Severity Noted Date Comments Pollen 08/18/2014 Asthma as a child documented as of this encounter (statuses as of 06/10/2023) Medications Medication Sig Dispensed Refills Start Date [...] % Nasal Solution Administer into nostril 1 [place] in the morning AND 1 [place] before bedtime. 30 mL 12 02/21/2022 Active [...] Fluocinolone Acetonide Scalp 0.01 % External Oil ([place]-Smoothe/FS Scalp)Indications:D ermatitis Apply to scalp at night [...] the morning. 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 Irritable bowel syndrome 01/01/2001 Allergic rhinitis Deviated nasal septum documented as of this encounter (statuses as of 06/10/2023) Resolved Problems Problem Noted Date Resolved Date Cervicalgia 07/03/2011 07/02/2018 Headache 07/03/2011 03/30/2018 Overview: ICD-10 update of inactive term Subjective tinnitus 12/04/2009 07/02/2018 Temporomandibular joint disorders, unspecified 0 12/04/2009 03/30/2018 RECURRENT ACUTE SINUSITIS 05/30/20082017 Anxiety state 07/30/2005 02/25/2023 Menopause 01/01/2001 03/30/2018 documented as of this encounter (statuses as of 06/10/2023) Immunizations Name Administration Dates Next Due COVID-19 mRNA, LNP-s, No Pre serve, 2-Dose Series ([employer]) 07/22/2022,01/12/2022,07/03/2021,11/20,10/27/2020 Pneumococcal Conjugate Vacc, 13 Valent (Prevnar) 03/15/2015 Pneumococcal Polysaccharide PPV23 (Pneumovax) 02/23/2013 Seasonal Influenza, PF, 6 mo ns & Above, IM , (Flulaval) 08/07/2022,07/02/2018 Seasonal Influenza, Split, I IV3, With [...] 0.6 oz pur e alcohol) per week Sex Assigned at Date Recorded Female 05/25/2021 11:03 AM EDT Job Start Date Occupation Industry Not on file Not on file Not on file documented as of this encounter Progress Notes * Tessy Ulloa CPhT - 06/10/2023 2:18 PM EDT Prescribed medication: Medication: Dupixent Shipment date: 06/16 Delivery method: Specialty Mail Location Medication Delivered too? Home Address: [address] [place] [address] Tessy Ulloa CPhT [facility] 06/10/2023,2:18 PM documented in this encounter Plan of Treatment Upcoming Encounters Date Type Specialty Care Team Description 08/06/2023 Office Visit Dermatology Cheryl Clark MD [address] [place] [address] 09/24/2023 Office Visit Family Medicine [place] III, Sachin Chang MD [address] [place] [address] 12/22/2023 Office Visit Dermatology Cheryl Clark MD [address] [facility] [place] [address] 01/29/2024 Telemedicine Dermatology [place], Pharmacist Dermatology [address] [place] [address] Scheduled Procedures Name Priority Associated Diagnoses Date/Ti me COLONOSCOPY FLEXIBLE PROXIMA L DIAGNOSTIC Recall History of colonic polyps Health Maintenance Due Date Last Done Comments COVID-19 Vaccine (6 - Pfizer series) 09/16/2022 07/22/2022, 01/12/2022, 01/12/2022, Additional history exists Influenza Vaccine (FLU shot) (#1) 2023 08/07/2022, 06/14/2021, 06/03/2020, Additional history exists Depression Screening, Annual for Pts 12 and Over 02/26/2024 02/25/2023, 03/20/2017 (Discussed) COLONOSCOPY-EVERY 5 YRS [...] filedocumented as of this encounter Care Teams Repairer General Relationship Specialty Start Date End Date Sachin Walton III, MD [address] [place] [address] PCP - General 01/04/02 documented as of this encounter
--- OUTSIDE RECORDS SUMMARY | 2023-10-23 13:44 | External Medical Summary | Summary of Care ---
Author Name Unknown Organization [facility] Address [address] [place] [address] Phone [phone] Care Team Providers Care Diesel Power Mechanic Name Role Phone Isabelle LIRA MD, Sachin Chang Primary Care Provider [phone] Encounter Details Date Type Department Care Team Description 07/15/2023 [facility], [address] [address] Refill, [address] [address] Allergies Active Allergy Reactions Severity Noted Date Comments Pollen 08/18/2014 Asthma as a child documented as of this encounter (statuses as of 07/15/2023) Medications Medication Sig Dispensed Refills Start Date [...] % Nasal Solution Administer into nostril 1 [place] in the morning AND 1 [place] before bedtime. 30 mL 12 02/21/2022 Active [...] Fluocinolone Acetonide Scalp 0.01 % External Oil ([place]-Smoothe/FS Scalp)Indications:D ermatitis Apply to scalp at night [...] as of this encounter (statuses as of 07/15/2023) Active Problems Problem Noted Date Dyslipidemia 10/27/2019 [...] as of this encounter (statuses as of 07/15/2023) Resolved Problems Problem Noted Date Resolved Date Cervicalgia 07/03/2011 07/02/2018 Headache 07/03/2011 03/30/2018 Overview: ICD-10 update of inactive term Subjective tinnitus 12/04/2009 07/02/2018 Temporomandibular joint disorders, unspecified 0 12/04/2009 03/30/2018 RECURRENT ACUTE SINUSITIS 05/30/20082017 Anxiety state 07/30/2005 02/25/2023 Menopause 01/01/2001 03/30/2018 documented as of this encounter (statuses as of 07/15/2023) Immunizations Name Administration Dates Next Due COVID-19 mRNA, LNP-s, No Pre serve, 2-Dose Series ([employer]) 07/22/2022,01/12/2022,07/03/2021,11/20,10/27/2020 Pneumococcal Conjugate Vacc, 13 Valent (Prevnar) [...] as of this encounter Progress Notes * ANGELA Lamb - 07/15/2023 10:46 AM EDT Prescribed medication: Medication: dupixent Shipment date: 07/21 Delivery method: Specialty Mail Location Medication Delivered too? Prescription Address: [address] [place] [address] ANGELA Lamb [facility] 07/15/2023,10:46 AM documented in this encounter Plan of Treatment Upcoming Encounters Date Type Specialty Care Team Description 08/06/2023 Office Visit Dermatology Cheryl Clark MD [address] [facility] [place] [address] 09/24/2023 Office Visit Family Medicine [place] III, Sachin Chang MD [address] [place] [address] 12/22/2023 Office Visit Dermatology Cheryl Clark MD [address] [facility] [place] [address] 01/29/2024 Telemedicine Dermatology [place], Pharmacist Dermatology [address] [place] [address] Scheduled Procedures Name Priority Associated Diagnoses Date/Ti [...] filedocumented as of this encounter Care Teams Diesel Power Mechanic Relationship Specialty Start Date End Date Sachin Walton III, MD [address] [place] [address] PCP - General 01/04/02 documented as of this encounter
--- OUTSIDE RECORDS SUMMARY | 2023-10-23 13:44 | External Medical Summary | Continuity of Care Document ---
Author Name Unknown Organization [place] [id number] [email or web address] [place] [id number] Address [address] [place] [phone] Care Team Providers Care Pharmacy Grad Intern Name Role Phone IsabelleSachin ocampo Bernardo Primary Care Physician [phone] [id number]): 07/28/23 - 07/28/23 [facility] [employer] [address] [facility] [address] [place] [address] Encounter Diagnosis Lumbar facet arthropathy(Discharge Diagnosis) - 07/28/23 Discharge Disposition: Home or Self Care Attending Physician: FELY Carrington Jolene Marie Referring Physician: MD Mathew, Ho Roa Allergies, Adverse Reactions, Alerts No Known Allergies Assessment and Plan Extracted from: Title:Orthopaedics Office Visit Note Author:Donna holguin PA-C, Jolene Marie Date:07/28/23 1.Lumbar facet arthropathy Patient is doing well status posta facet injection approximately 7 weeks ago. At this time we mutually agreed upon continue with activities as tolerated. Patient would like to get scheduled for a future date for an injection. Patient will be scheduled for bilateralL5-S1 facet injection under fluoroscopic guidance. Patient is a level ASA 2 for upcoming procedure. She will follow-up after the injection via telephone call or schedule appointment if neededproximately 4 weeks outafter the injection. She was advised if anything changes between now and thento contact the office. Patient verbalized understanding and is in agreement with plan. Immunizations Given and Recorded Vaccine Date Status Refusal Reason influenza virus vaccine, inactivated 08/22/16 Give n Medications amLODIPine 5 mg oral tablet take 1 tablet by mouth every morning Start Date: 01/09/23 Status: Ordered azelastine 137 mcg/inh (0.1%) nasal spray Start: 01/09/23 11:00:00 EDT, 1 spray, each nostril, bid, PRN: as needed for allergy symptoms Start Date: 01/09/23 Status: Ordered Dupixent Pen 300 mg/2 mL SQ solution Start: 02/19/23 9:54:00 EDT Start Date: 02/19/23 Status: Ordered Enstilar 0.005%-0.064% topical foam APPLY TO SCALP DAILY NEEDED Start Date: 01/09/23 Status: Ordered fluocinolone 0.01% topical oil APPLY TO SCALP AT NIGHT NEEDED WASH OFF IN AM Start Date: 01/09/23 Status: Ordered melatonin Start: 05/27/22 13:02:00 EDT, See Instructions, dose unknown- 1 at night Start Date: 05/27/22 Status: Ordered Robaxin 500 mg oral tablet Start: 10/09/22 9:56:00 EST, 1 tab, PO, q8h, Disp# 90 tab, Refills: 2, Pharmacy: [id number] Start Date: 10/09/22 Stop Date: 01/07/23 Status: Ordered triamcinolone 0.1% topical ointment APPLY TO TRUNK AND EXTREMITIES UP TO TWICE A DAY UNTIL IMPROVED THEN TAPER DOWN Start Date: 01/09/23 Status: Ordered Tylenol 500 mg oral tablet Start: 05/10/22 13:13:00 EDT, 2 tab, PO, q8h Start Date: 05/10/22 Status: Ordered Vitamin D3 5000 intl units (125 mcg) oral capsule Start: 05/27/22 13:01:00 EDT Start Date: 05/27/22 Status: Ordered Mental Status 07/28/23 Barriers to Learning one year None evide nt Mandatory Health Literacy Documentation Yes Health Literacy Communication Barriers N ever Primary Language Italian Problem List Condition Confirmation Course Effective Dates Status Health St atus Informant Lumbar facet arthropathy Confirmed Active Asthma Confirmed Active Callus Confirmed Active Chronic low back pain Confirmed Active Chronic sinus infection Confirmed Active L3 vertebral fracture Confirmed Active Frequent headaches Confirmed Active Acid reflux Confirmed Active Hammertoe of left foot Confirmed Active IBS (irritable bowel syndrome) Confirmed Active Diagnosis Diagnosis Type Effective Dates Health Status Clinical Service Informant Lumbar facet arthropathy Discharge Diagnosis 07/28/23 Social History Social History Type Response Smoking Status Never smoked cigaret angeles Sex Female Outpatient Note * FELY Carrington, Inocencia Rice: PERFORM Event Display: .Outpt Note Authored Date: [id number] Primary Care Provider MD Isabelle, Sachin Chang Referring Provider MD Mathew, Ho Roa Chief Complaint Follow up facet injection 0/0/6 History of Present Illness Patient is a 77-year-old female who is a known patient to the office. Shehas a history of having facet arthropathy and is following up status post bilateralL5-S1 facet injections on 06/03. Shestates she had 100% relief for2 daysand now she reports her relief is 70%. She states she hasbeen doing wellshe was able to travel [place] and[place] increased walking without any symptoms. She is very pleased with her response. She states she is doingstretching and this seems to helpwith her pain as well. She states if she overdoes it at times she will have discomfort we will have to set up however she does not have to wrestle as long was able to resume activities. She quanti fies her pain is 0/10 current, 0/10 best, 6/10 worse. She deniesany redness or drainage from the injection site, fever, chills, night sweats, chest pain or shortness of breath. Review of Systems Please refer to HPI Physical Exam Patient is seated comfortably in exam chair.She is alert and oriented x3 no acute distress pleasant and conversive. Upon standing back was inspected. Previous injection sites clean, dry, and intact. She has no palpable tenderness along lumbar spine over L4-L5 or S1. Negative for reproductive no pain with rotation or trunk extension. Sensation is intact over these areas. Gait is normalwithout assistive device. Assessment/Plan 1.Lumbar facet arthropathy Patient is doing well status posta facet injection approximately 7 weeks ago. At this time we mutually agreed upon continue with activities as tolerated. Patient would like to get scheduled fora future date for an injection. Patient will be scheduled for bilateralL5-S1 facet injection und er fluoroscopic guidance. Patient is a level ASA 2 for upcoming procedure. She will follow-up after the injection via telephone call or schedule appointment if neededproximately 4 weeks outafter the injection. She was advised if anything changes between now and thento contact the office. Patient verbalized understanding and is in agreement with plan. Problem List/Past Medical History Ongoing Acid reflux Asthma Callus Chronic low back pain Chronic sinus infection Frequent headaches Hammertoe of left foot IBS (irritable bowel syndrome) L3 vertebral fracture Lumbar facet arthropathy Medications acetaminophen(Tylenol 500 mg oral tablet), 1000 mg= 2 tab, PO, q8h amLODIPine(amLODIPine 5 mg oral tablet) azelastine nasal(azelastine 137 mcg/inh (0.1%) nasal spray), 1 spray, each nostril, bid, PRN betamethasone-calcipotriene topical(Enstilar 0.005%-0.064% topical foam) cholecalciferol(Vitamin D3 5000 intl units (125 mcg) oral capsule) dupilumab(Dupixent Pen 300 mg/2 mL SQ solution) fluocinolone topical(fluocinolone 0.01% topical oil) melatonin, See Instructions methocarbamol(Robaxin 500 mg oral tablet), 500 mg= 1 tab, PO, q8h, 2 refills triamcinolone topical(triamcinolone 0.1% topical ointment) Allergies NKA No Known Medication Allergies Social History Smoking Status Never smoked cigarettes Immunizations Vaccine Date Status influenza virus vaccine, inactivated 08/22/2016 Given Recommendations Health Maintenance Pending(in the next year) OverDue Adult Influenza Vaccine due04/05/23and every 1year Due Adult COVID-19 Vaccination due07/28/23Unknown Frequency Adult Tdap/Td Vaccine due07/28/23Unknown Frequency Hepatitis C Screening due07/28/23One-time only Lipid Screening due07/28/23Unknown Frequency Medicare Annual Wellness Visit due07/28/23and every 1year Osteoporosis Screening due07/28/23One-time only Pneumococcal Vaccine Older Adults due07/28/23One-time only Shingles Vaccine due07/28/23One-time only Due In Future Body Mass Index not due until05/22/24and every 1year Satisfied(in the past 1 year) Satisfied Body Mass Index on05/23/23.Satisfied by BEBE Balbuena Angela M Electronic Signature on File Electronically Reviewed/Signed by: Inocencia Carrington PA-C Author Signature Dt/Tm:07/28/2023 02:22PM Division of Sports Medicine Electronically Reviewed/Signed by: Ho Carmona MD Cosigner Signature Dt/Tm: 07/28/2023 03:41 PM Deputy Insurance Commissioner of Orthopaedics & Rehabilitation and Physical Medicine & Rehabilitation Patient Care team information Care Team Personnel Name: FELY Bettencourt Ashley Position: Physician Bee Raiser - Neurosurgery Member Role: Lifetime Relationship Address: Address: [address] [address] [place] Name: MD Walton John E Position: Referring DIRECT Member Role: Primary Care Provider Address: Address: [address] [place] [address] [place] Name: Palmira Armstrong Kyle Position: Pharmacist Member Role: Pharmacy - Lifetime Address: Address: [address] [place] [address] Care Team Related Persons Name: MICHAEL TOLBERT Address: home [address] [place] [phone]
--- OUTSIDE RECORDS SUMMARY | 2023-10-23 13:44 | External Medical Summary | Summary of Care ---
Author Name Unknown Organization [facility] Address [address] [place] [address] Phone [phone] Care Team Providers Care Front Desk Monitor Name Role Phone Isabelle LIRA MD, Sachin Chang Primary Care Provider [phone] Reason for Visit * Reason Comments Dosage Adjustment Via Phone (anticoag Cl inic) Encounter Details Date Type Department Care Team Description 04/29/2023 Telemedicine Dermatology [address] [address] [place], Pharmacist Dermatology [address] [place] [address] Dermatitis* Allergies Active Allergy Reactions Severity Noted Date Comments Pollen 08/18/2014 Asthma as a child documented as of this encounter (statuses as of 04/29/2023) Medications Medication Sig Dispensed Refills Start Date [...] % Nasal Solution Administer into nostril 1 Geneva in the morning AND 1 Geneva before bedtime. 30 mL 12 02/21/2022 Active [...] Fluocinolone Acetonide Scalp 0.01 % External Oil ([place]man-Smoothe/FS Scalp)Indications :Dermatitis Apply to scalp at night [...] the morning. 90 Tablet 3 02/25/2023 Active Dupixent 300 MG/2ML Subcutaneous Solution Pen-injector (Dupilumab) Starter Dose: Inject 600mg (2 pens) under the skin once, then 300mg (1 pen) under the skin every 2 weeks. 8 mL 0 01/28/2023 04/29/20 23 Discontinued documented as of this encounter (statuses as of 04/29/2023) Active Problems Problem Noted Date Dyslipidemia 10/27/2019 [...] as of this encounter (statuses as of 04/29/2023) Resolved Problems Problem Noted Date Resolved Date Cervicalgia 07/03/2011 07/02/2018 Headache 07/03/2011 03/30/2018 Overview: ICD-10 update of inactive term Subjective tinnitus 12/04/2009 07/02/2018 Temporomandibular joint disorders, unspecified 0 12/04/2009 03/30/2018 RECURRENT ACUTE SINUSITIS 05/30/20082017 Anxiety state 07/30/2005 02/25/2023 Menopause 01/01/2001 03/30/2018 documented as of this encounter (statuses as of 04/29/2023) Immunizations Name Administration Dates Next Due COVID-19 mRNA, LNP-s, No Pre serve, 2-Dose Series (Gera-IT) 07/22/2022,01/12/2022,07/03/2021,11/20,10/27/2020 Pneumococcal Conjugate Vacc, 13 Valent (Prevnar) 03/15/2015 Pneumococcal Polysaccharide PPV23 (Pneumovax) 02/23/2013 Seasonal Influenza, Quadriva lent, No Preserve, 6 Mons & Above, IM 08/07/2022,07/02/2018 Seasonal Influenza, Split, I IV3, With [...] as of this encounter Progress Notes * Mitra De La Cruz, [facility] - 04/29/2023 1:10 PM EDT After connecting to the patient via telephone, the patient was identified by name and date of . Patient was then informed that this was a telephone call only visit. The patient agreed to participate. Visit Disposition: Routine follow-up Total call duration was 10 minutes. Dermatology Clinical Pharmacy Dermatology Provider: Dr. Clark Pharmacist Referral for: Co-management Visit: 3 month Disease Type: Autoimmune: Contact dermatitis - Dermatitis, unspecified L30.9 MEDICAL/SOCIAL HISTORY: Smoking: No previous history of smoking CURRENT MEDICATION REGIMEN: Biologic Therapy: Dupilumab (Dupixent) Maintenance 300mg/2ml Pen - 300mg every two weeks Date of initiation of present therapy: approximately January 2023. Stop date for present therapy: not applicable at this time. Last Dose: last Friday Prior history of biologic therapy? N/A Topical Therapy: Triamcinolone 0.1% ointment - using above eyebrow occasionally Phototherapy: no MEDICATION ASSESSMENT: Adherence: In the last month, how many times has patient missed a dose of above noted medication? 0. In the last month, how many times has patient taken dosage later than instructed? 0. Side Effects Reported: no What does patient do when they have these side effects? N/A Any new medication since last visit?: no new medications/OTC/herbals. SYMPTOM/ILLNESS ASSESSMENT : Patient account of regimen effectiveness: improvement in condition/symptoms. Hospitalization, ED visits, or surgery since last visit: No PLAN: -Patient has been on Dupixent ~3 months and reports great improvement -Patient stated her chairman emeritus noticed scalp not as red and no thick plaques anymore -Patient reports a great decrease in itch as well -Patient does have one dry spot on eyebrow area using triamcinolone - discussed using hydrocortisone and to use steroid sparingly on face -Patient denies any issues with injections, possibly last injection maybe needle malfunction- has been in contact pharmacy and manufacture - will keep me updated if further issues -Patient denies any side effects besides some dry eyes - uses eye drops - unsure if dupixent she stated or just in general -Follow ups scheduled Follow-Up Appointment(s): Physician: already scheduled 08/06/23 Mitra De La Cruz [facility] Medication Therapy Disease Management Dermatology Department 04/29/2023, 1:10 PM documented in this encounter Plan of Treatment Upcoming Encounters Date Type Specialty Care Team Description 08/06/2023 Office Visit Dermatology Cheryl Clark MD [address] [place] [address] 09/24/2023 Office Visit Family Medicine Isabelle III, Sachin Chang MD [address] [facility] [place] [address] 12/22/2023 Office Visit Dermatology Cheryl Clark MD [address] [facility] [place] [address] 01/29/2024 Telemedicine Dermatology [place], Pharmacist Dermatology [address] [place] [phone] Scheduled Procedures Name Priority Associated Diagnoses Date/Ti [...] and other eczema, due to unspecified cause documented in this encounter Care Teams Front Desk Monitor Relationship Specialty Start Date End Date Isabelle LIRA, Sachin Chang MD [address] [place] [address] PCP - General 01/04/02 documented as of this encounter
--- OUTSIDE RECORDS SUMMARY | 2023-10-23 13:44 | External Medical Summary | Continuity of Care Document ---
Author Name Unknown Organization [address] [facility] [place] [id number] Address [address] [place] [phone] Care Team Providers Care Authorization Specialist Name Role Phone Sachin Walton Primary Care Physician [phone] [facility] [id number] Date(s): 06/03/23 - 06/03/23 [facility] [address] [facility] [address] [address] Encounter Diagnosis Lumbar facet arthropathy(Discharge Diagnosis) - 06/02/23 Discharge Disposition: Home or Self Care Attending Physician: MD Carmona Gregory G Allergies, Adverse Reactions, Alerts No Known Allergies Immunizations Given and Recorded Vaccine Date Status [...] q8h, Disp# 90 tab, Refills: 2, [facility]: [id number] Start Date: 10/09/22 Stop Date: 01/07/23 Status: [...] Start Date: 05/27/22 Status: Ordered Mental Status 06/03/23 Barriers to Learning one year None evide nt Mandatory Health Literacy Documentation Yes Health Literacy Communication Barriers N ever Primary Language Kittitian Problem List Condition Confirmation Course Effective Dates [...] Service Informant Lumbar facet arthropathy Discharge Diagnosis 06/02/23 Vital Signs Most recent to oldest [Reference Range]: 1 Heart Rate 77 bpm (06/03/23 9:30 AM) Blood Pressure 150/64mmHg (06/03/23 9:30 AM) Cuff Pulse Pressure 86 mmHg (06/03/23 9:30 AM) Social History Social History Type Response Smoking Status Never smoked cigaret angeles Sex Female Ortho Outpt Note * MD Mathew, Ho Roa: PERFORM Event Display: Ortho Outpt Note Authored Date: [id number] Name:DHRUV SERRA Patient Number:[id number] :1945 Date of Service:06/03/2023 Preoperative diagnosis: Bilateral L5-S1 facet arthropathy Postoperative diagnosis: Same Procedure: Bilateral L5-S1 facet joint injections under fluoroscopic guidance Indications: Patient is a 77 year old female who presents for injections today to address back pain. Physical examination patient is without any focal motor or sensory deficits and negative seated straight leg raises, bilateral tenderness of the lumbar sacral facet areas, worse with extension. Consent: Verbal consent was obtained from the patient. Prior to the procedure a timeout was done for safety to identify patient's name date of and approach. Procedure: Patient was maintained in a prone position backside was cleansed with Betadine x3 fluoroscope was used to identify the left L5-S1 facet joint . The overlying skin was anesthetized with 2.5 mL of lidocaine 1% with a 25-gauge 1/2 inch needle. A 3-1/2 inch 22-gauge spinal needle was then directed under fluoroscopic guidance into the joint and they underwent injection after negative aspiration half a milliliter of the 80 mg/mL concentration of Depo-Medrol and 1/2 mL of 0.25% bupivacaine. Fluoroscope was then used to identify the right L5- S1 facet joint . The overlying skin was anesthetized with 2.5 mL of lidocaine 1% with a 25-gauge 1/2 inch needle. A 3-1/2 inch 22-gauge spinal needle was then directed under fluoroscopic guidance into the joint and they underwent injection after negative aspiration half a milliliter of the 80 mg/mL concentration of Depo-Medrol and 1/2 mL of 0.25% bupivacaine. Injection was well-tolerated images from the procedure were saved and downloaded to PACS. Disposition: Patient will be discharged home once discards criteria have been met. Electronic Signature on File CC: Sachin Walton MD [address] [place] [address] * Electronically Reviewed/Signed by: Ho Carmona MD Author Signature Dt/Tm:06/03/2023 09:56 AM Ladle Car Operator of Orthopaedics & Rehabilitation and Physical Medicine & Rehabilitation [facility] .Outpt Proc * TYRONE Brizuela, Emily Bowden: PERFORM Event Display: .Outpt Proc Authored Date: [id number] OUTPATIENT PROCEDURE Name: DHRUV SRERA Patient Number: [id number] : 1945 Date of Service: 06/03/2023 OUTPATIENT PROCEDURE NOTE Is patient no Procedure performedBilateralFacet Joint Injection [id number] byDr. Ho Carmona MD Resuscitation equipment checkedyes Anticoagulants stoppedN/A Patient has a driveryes xray guidance usedyesConscious sedationnoTime out completedyes consent signedyes Allergies checkedyesNo Known Medication Allergies; NKA Diabeticno PositionPronePre procedure pain level __2_/10 Skin PrepBetadineSterile drapes usedyes Skin Local Anesthetic: Needle ____25_ga ____1.5__in Lidocaile ___1__%___4__ml Other HR: 77 SpO2: 96% BP: 150/64 Block Needle _22_GA_3.5_InchesType - Epidural/spinal needle x2 Procedure medication used Cortical Steroids _80__mg MethylprednisoloneLocal Anesthetic ___0.25__% __1___ml Bupivicaine TimeDrug/Event/RemarkBPHRSPO2 Comments 0946 - 0.25ml Omnipaque L Facet joint 0949 - 0.25ml Omnipaque R Facet joint 0950 - Procedure complete 148/68 64 100% Status:Pain on discharge __0__/10ComplicationsNo Neurologically stableYes DispositionDischarged Home with aftercare instructions given Follow up ___6__weeks Electronic Signature on File Electronically Reviewed/Signed by: Emily Brizuela Author Signature Dt/Tm:06/03/2023 09:55 AM Electronically Reviewed/Signed by: Ho Carmona MD Cosigner Signature Dt/Tm: 06/03/2023 09:57 AM Ladle Car Operator of Orthopaedics & Rehabilitation and Physical Medicine & Rehabilitation [facility] Patient Care team information Care Team Personnel Name: FELY Bettencourt Ashley Position: Physician Sales Representative Printing Paper - Neurosurgery Member Role: Lifetime Relationship Address: Address: [address] [facility] [address] [place] [address] [place] Name: MD Walton John E Position: Referring DIRECT Member Role: Primary Care Provider Address: Address: [address] [place] [address] [place] Name: Palmira Armstrong Kyle Position: Pharmacist Member Role: Pharmacy - Lifetime Address: Address: [address] [place] [address] [place] Care Team Related Persons Name: MICHAEL TOLBERT Address: home [address] [place] [address], [place] [phone]
--- OUTSIDE RECORDS SUMMARY | 2023-10-23 13:44 | External Medical Summary | Summary of Care ---
Author Name Unknown Organization [facility] Address [address] [place] [address] Phone [phone] Care Team Providers Care Sap Architect Name Role Phone Isabelle LIRA MD, Sachin Chang Primary Care Provider [phone] Reason for Visit * Reason Comments Dosage Adjustment Via Phone (anticoag Cl inic) Encounter Details Date Type Department Care Team Description 04/29/2023 Telemedicine Dermatology [address] [address] [place], Pharmacist Dermatology [address] [place] [address] Dermatitis* Allergies Active Allergy Reactions Severity Noted [...] % Nasal Solution Administer into nostril 1 Napoleon in the morning AND 1 Napoleon before bedtime. 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 and no [...] already scheduled 08/06/23 Mitra De La Cruz [facility] Medication Therapy Disease Management Dermatology Department 04/29/2023, 1:10 PM documented in this encounter Plan of Treatment Upcoming Encounters Date Type Specialty Care Team Description 08/06/2023 Office Visit Dermatology Cheryl Clark MD [address] [place] [address] 09/24/2023 Office Visit Family Medicine Isabelle III, Sachin Chang MD [address] [place] [address] 12/22/2023 Office Visit Dermatology Cheryl Clark MD [address] [place] [address] 01/29/2024 Telemedicine Dermatology [place], Pharmacist Dermatology [address] [place] [address] Scheduled Procedures Name Priority Associated Diagnoses Date/Ti [...] cause documented in this encounter Care Teams Sap Architect Relationship Specialty Start Date End Date Isabelle LIRA, Sachin Chang MD [address] [place] [address] PCP - General 01/04/02 documented as of this encounter
--- OUTSIDE RECORDS SUMMARY | 2023-10-23 13:44 | External Medical Summary | Continuity of Care Document ---
Author Name Unknown Organization [id number] Address [address] [place] [id number] Care Team Providers Care Career Portals Teacher Name Role Phone MecostaSachin ocampo Bernardo Primary Care Physician [phone] Encounter [facility] [id number] Date(s): 05/23/23 - 05/23/23 [facility] [employer]Flow 1850 [employer] [facility] 112G [facility] [address] [place] [id number] Encounter Diagnosis Chronic low back pain(Discharge Diagnosis) - 05/23/23 Lumbar facet arthropathy(Discharge Diagnosis) - 05/23/23 Discharge Disposition: Home or Self Care Attending Physician: FELY Carrington Jolene Marie Allergies, Adverse Reactions, Alerts No Known Allergies Assessment and Plan Extracted from: Title:Orthopaedics Office Visit Note Author:Donna holguin PA-C, Jolene Marie Date:05/23/23 1.Chronic low back pain 2.Lumbar facet arthropathy Patientcontinues to havediscomfort across the low back that is consistent withfacet arthropathy. We discussedpossible trial of a xfze-oiz-lozu brace to see if this gives her some relief with doing activities. We also discussedtherapeutic injection. She has a history of having facetinjections in the past. She would like to try an injection. We discussed risk and benefits of the injection. Patient will be scheduled for bilateralL5-S1 facetinjections under fluoroscopic guidance. Patient is a level ASA2 for upcoming procedure. She will follow-up 4 weeks after the injection to be reassessed. If she changes her mind about getting a brace she was advised on callingthe office and I would be happy to order this for her. Patient was advised if any concerns, questions or changes to contact the office sooner. Patient verbalized understanding and is in agreement Immunizations Given and Recorded Vaccine Date Status [...] Disp# 90 tab, Refills: 2, [facility]: [id number] Start Date: 10/09/22 Stop Date: 01/07/23 Status: [...] Start Date: 05/27/22 Status: Ordered Mental Status 05/23/23 Barriers to Learning one year None evide nt Mandatory Health Literacy Documentation Yes Health Literacy Communication Barriers N ever Primary Language Arabic Problem List Condition Confirmation Course Effective Dates [...] Effective Dates Health Status Clinical Service Informant Chronic low back pain Discharge Diagnosis 05/23/23 Lumbar facet arthropathy Discharge Diagnosis 05/23/23 Vital Signs Most recent to oldest [Reference Range]: 1 Height 164 cm (05/23/23 1:47 PM) Patient Weight 76.8 kg (05/23/23 1:47 PM) Body Mass Index 28.55 kg/m2 (05/23/23 1:47 PM) Social History Social History Type Response Smoking Status Never smoked cigaret angeles Sex Female Outpatient Note * FELY Carrington, Inocencia Rice: PERFORM Event Display: .Outpt Note Authored Date: [id number] Primary Care Provider MD Isabelle, Sachin Chang Chief Complaint Back pain. Pain History of Present Illness Patient is a 66-ocsd-datihptoh who is a known patient to Dr. Carmona. She has a history of havingfacet arthrosisand a history of bilateral L5-S1 facet injections that were completed last fall. She also has a known history of an L3 compression fracture that was from June 2022. She is here for reassessmentof her low back pain. She states she continues to have pain and it is acrossher low back. She states it does not radiate down her legs. She denies any weakness or paresthesiain her legs. 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 She states she is not able to vacuum or sweep. She statesleaning forward to wipe cabinets or to do anyhousehold cleaning gives her pain when she returns to upright position. She notes that she was shucking corn leaning forward and when she had to come back up because it gave her increased pain. She has salbrapkc-npz-gceejep analgesics without lasting relief. She has tried taking Robaxin to help with the muscle tightness and this made no difference. She is requesting to get scheduled for another injection. She quantifies her pain as 7/10 current, 3/10 Best, 7/10 worse. She denies any fever, chills,night sweats, chest pain or shortness of breath. She denies any fall or injuries. Review of Systems Please refer to HPI Physical Exam Vitals & Measurements HT:164cm WT:76.8kg WT:76.800kg(Dosing) BMI:28.55 Patient is seated comfortably in exam chair. She is alert and oriented e7arluscgr and conversiveno acute distress. Upon standing back was inspected. Skin is normal in color and temperature negative for edema erythema ordeformity. She has no palpable tenderness overL3-L4. She has palpable tenderness over L5 and S1 facets bilaterally. This is reproduced when patientrotates andreturns to neutral position. Negative for any pain over S1 or sciatic notch. Patient returned to seated position.Sensation was assessed over L4-L5 and S1 bilaterally this is intact. Bilateral lower extremity shows no focal weakness. Gait is normal without assist device. Diagnostic Results Previous imagingshows facet arthropathyat L5-S1. There is sclerosis that was present overthecompression fracture at L3 Assessment/Plan 1.Chronic low back pain 2.Lumbar facet arthropathy Patientcontinues to havediscomfort across the low back that is consistent withfacet arthropathy. We discussedpossible trial of a uxql-qyy-lpsn brace to see if this gives her some relief with doing activities. We also discussedtherapeutic injection. She has a history of having facet injections in the past. She would like to try an injection. We discussed risk and benefits ofthe injection. Patient will be scheduled for bilateralL5-S1 facetinjections under fluoroscopic guidance. Patient is a level ASA2 for upcoming procedure. She will follow-up 4 weeks after the injection to be reassessed. If she changes her mind about getting a brace she was advised on callingthe office and I would be happy to order this for her. Patient was advised if any concerns,questions or changes to contact the office sooner. Patient verbalized understanding and is in agreement Problem List/Past Medical History Ongoing Acid reflux [...] due04/05/23and every 1year Due Adult COVID-19 Vaccination due05/23/23Unknown Frequency Adult Tdap/Td Vaccine due05/23/23Unknown Frequency Hepatitis C Screening due05/23/23One-time only Lipid Screening due05/23/23Unknown Frequency Medicare Annual Wellness Visit due05/23/23and every 1year Osteoporosis Screening due05/23/23One-time only Pneumococcal Vaccine Older Adults due05/23/23One-time only Shingles Vaccine due05/23/23One-time only Due In Future Body Mass Index not due until05/22/24and every 1year Satisfied(in the past 1 year) Satisfied Body Mass Index on05/23/23.Satisfied by BEBE Balbuena Angela M Electronic Signature on File Electronically Reviewed/Signed by: Inocencia Carrington PA-C Author Signature Dt/Tm:05/23/2023 02:08PM Division of Sports Medicine Electronically Reviewed/Signed by: Ho Carmona MD Cosigner Signature Dt/Tm: 05/23/2023 03:14 PM [facility] Patient Care team information Care Team Personnel Name: FELY Bettencourt Ashley Position: Physician Office Associate - Neurosurgery Member Role: Lifetime Relationship Address: Address: [address] [place] [address] [place] [address] Name: MD Walton John E Position: Referring DIRECT Member Role: Primary Care Provider Address: Address: [address] [place] [address] [place] Name: Palmira Armstrong Kyle Position: Pharmacist Member Role: Pharmacy - Lifetime Address: [address] [address] [facility] [address] Care Team Related Persons Name: MICHAEL TOLBERT Address: home [address] [facility], [place] [id number]
[2023-10-23] MEDS: LORATADINE 10 MG TAB PO SCH (13:45)
[2023-10-23] MEDS ORDERED: ATROPINE SULFATE 0.1 MG/ML 10ML SYR IV ONE (14:39)
[2023-10-23] MEDS ORDERED: ATROPINE SULFATE 0.1 MG/ML 10ML SYR IV STA (14:52)
[2023-10-23] MEDS: ICU Protocol for HYPERglycemia SCH ×2 (15:36→20:20)
--- NOTE | 2023-10-23 19:39 | XCELERA ---
[id number] \\[id number]
[2023-10-23] MEDS: guaiFENesin 600 MG TABCR PO SCH (20:08)
[2023-10-23] MEDS: METOPROLOL TARTRATE 25 MG TAB PO SCH (20:09)
[2023-10-23] MEDS: TICAGRELOR 90 MG TAB PO SCH (22:10)
[2023-10-24 05:28] LABS: Basophils # (auto) 0.05 K/uL (0.00-0.20); Basophils % (auto) 0.5 %; Eosinophils # (auto) 0.11 K/uL (0.00-0.50); Eosinophils % (auto) 1.2 %; Hematocrit (blood only) 38.1 % (37.0-47.0); Hemoglobin 12.9 g/dl (12.0-16.0); Immature Granulocytes # (auto) 0.08 K/uL (0.01-0.20); Immature Granulocytes % (auto) 0.9 %; Lymphocytes # (auto) 1.56 K/uL (1.20-3.40); Lymphocytes % (auto) 16.6 %; Mean Corpuscular Hgb Conc 33.9 g/dL (32.0-36.0); Mean Corpuscular Volume 91.6 fL (80.0-100.0); Mean Platelet Volume 8.8 fL (9.4-12.4); Monocytes # (auto) 0.68 K/uL (0.11-0.59); Monocytes % (auto) 7.3 %; Neutrophils # (auto) 6.89 K/uL (1.40-6.50); Neutrophils % (auto) 73.5 %; Platelet Count 338 K/uL (130-400); RDW Coefficient of Variation 12.3 % (11.5-14.5); RDW Standard Deviation 41.3 fL (36.4-46.3); Red Blood Count 4.16 M/uL (4.20-5.40); White Blood Count 9.37 K/ul (4.8-10.8)
[2023-10-24 05:29] LABS: BUN Creatinine Ratio 20.5 (10-20); Calcium 8.4 mg/dl (8.6-10.3); Chol HDL Ratio 2.7 (0-5); Creatinine Clr Calc Pharmacy 60.3 ml/min; Est GFR (African American) 79.4 ml/min; Est GFR (Non-African American) 68.5 ml/min; Magnesium 2.2 mg/dl (1.7-2.4); Potassium 3.9 mmol/L (3.5-5.1)
[2023-10-24 05:36] LABS: Troponin I High Sensitivity 9682.8 pg/ml (0-14)
[2023-10-24] MEDS: ICU Protocol for HYPERglycemia SCH ×4 (07:22→20:14)
[2023-10-24 07:32] LABS: Estimated Average Glucose 114 mg/dl; Hemoglobin A1C 5.6 % (4.5-5.6)
[2023-10-24] MEDS: PANTOprazole 40 MG TAB PO SCH (08:25)
[2023-10-24] MEDS: ASPIRIN 81 MG ECTAB PO SCH (08:25)
[2023-10-24] MEDS: LORATADINE 10 MG TAB PO SCH (08:25)
[2023-10-24] MEDS: TICAGRELOR 90 MG TAB PO SCH ×2 (08:25→20:18)
[2023-10-24] MEDS: lisinopril 5 MG TAB PO SCH (08:26)
[2023-10-24] MEDS: guaiFENesin 600 MG TABCR PO SCH ×2 (08:26→20:17)
[2023-10-24] MEDS: METOPROLOL TARTRATE 25 MG TAB PO SCH ×2 (08:26→20:18)
[2023-10-24] MEDS: ATORVASTATIN 40 MG TAB PO SCH (08:27)
--- NOTE | 2023-10-24 09:02 | Critical Care Progress Note ---
Date of Service October 24, 2023 Assessment & Plan (1) STEMI (ST elevation myocardial infarction): Plan: She is status post PCI with a drug-eluting stent to the distal RCA. She is asymptomatic presently. Troponins have peaked. Obtain echo. Beta-brittany, dual antiplatelets, CELENA inhibitor ordered by the wharf worker. Discussed with cardiology at bedside. Patient stable for downgrade. (2) Upper respiratory infection, viral: Plan: She notes that she had some increased sinus congestion and cough starting about 5 to 7 days ago and completed a course of prednisone. She does note a remote history of asthma. If she spikes a fever, would favor ordering a respiratory viral panel. Admission and Anticipated Discharge Date Admission Date: October 23, 2023 Subjective Doing well overnight no acute events. Denies any complaints. Review of Systems Review of Systems: All systems reviewed & are unremarkable except as noted in HPI & below Physical Exam Physical Exam: Constitutional: Patient appears to be of their stated age. Patient is in no apparent distress. Patient is well-developed. Eyes: Pupils are equal round and reactive to light. Conjunctivae are normal. Anicteric sclera. Ears nose, mouth and throat: Deferred. Neck: Trachea is midline. Visual inspection is normal. Respiratory: Clear to auscultation bilaterally. No use of accessory muscles. No significant clubbing noted. Cardiovascular: Regular rate and rhythm. No murmurs. No edema. Gastrointestinal: Normal bowel sounds, soft, nontender and nondistended. No hepatosplenomegaly noted. Musculoskeletal: No cyanosis. Patient is able to move all extremities. Strength is 5 out of 5 in the upper and lower extremities. Skin: No rashes, warm dry and intact. Neurologic: No obvious focal neurological deficits seen. Psychiatric: Alert and oriented x3 with a euthymic affect. Results & Data Results & Data Vital Signs (Past 12 Hours) Vital Signs Temp Pulse Resp BP Pulse Ox O2 Del Method 10/24/23 06:00 36.3 C L 61 16 140/61 96 Room Air 10/24/23 05:00 58 L 14 112/85 94 Room Air 10/24/23 04:00 36.3 C L 61 18 129/53 L 95 Room Air 10/24/23 03:00 67 24 113/55 L 94 Room Air 10/24/23 02:00 61 20 111/74 95 Room Air 10/24/23 01:00 58 L 17 123/61 95 Room Air 10/24/23 00:00 60 18 133/78 94 Room Air 10/23/23 23:04 60 14 139/69 95 Room Air 10/23/23 22:44 60 10/23/23 22:00 36.5 C 65 14 128/66 95 Room Air Coding Level of Care Code 63034 SUB INP/OBS CARE 10/30MIN Diagnoses STEMI (ST elevation myocardial infarction) I21.19 Involved coronary artery: other inferior wall coronary artery Upper respiratory infection, viral J06.9 (1) STEMI (ST elevation myocardial infarction) Involved coronary artery: other inferior wall coronary artery Qualified Code(s): I21.19 - ST elevation (STEMI) myocardial infarction involving other coronary artery of inferior wall
--- NOTE | 2023-10-24 13:46 | Cardiology Progress Note ---
Date of Service October 24, 2023 Assessment & Plan (1) STEMI (ST elevation myocardial infarction): Plan: Post PCI with LUÍS to distal RCA 2. Nonculprit coronary artery [id number]% distal LAD 3. Preserved LV function 4. Mild to moderate aortic regurgitation 5. Mild mitral rotation. 6. Dyslipidemia Chest pain-free this morning. Troponin peaked. Hemodynamically stable overnight. Frequent PVCs with no sustained ectopy. LV function preserved on echo. No signs of heart failure on exam. No apparent access site complications. Continue DAPT with aspirin, ticagrelor Continue current metoprolol, lisinopril. On discharge transition to Toprol-XL Continue current atorvastatin From a cardiac standpoint okay with transfer to telemetry today. Likely home tomorrow. Follow-up with me in 2 weeks. Will discuss cardiac rehab further at that time. Admission and Anticipated Discharge Date Admission Date: October 23, 2023 Subjective Feeling well this morning. Denies any recurrent chest pain. No other events overnight. Telemetry reviewedintermittent PVCs, no sustained ectopy Review of Systems Review of Systems: All systems reviewed & are unremarkable except as noted in HPI & below Physical Exam Physical Exam: General: Comfortable HEENT: Sclerae anicteric Lungs: Clear to auscultation bilaterally, no crackles or wheezes Cardiac: Regular rate and rhythm, no murmurs. Vascular: Right radial artery access site with no ecchymosis, hematoma. Distal pulse and sensation intact. Abdomen: Soft, nontender Extremities: Well perfused, no peripheral edema Neuro: Nonfocal Psych: Alert orient x3, normal affect and mood Results & Data Vital Signs (Past 12 Hours) Vital Signs Temp Pulse Resp BP Pulse Ox O2 Del Method 10/24/23 12:02 98.2 F 10/24/23 12:00 70 24 10/24/23 11:15 59 L 13 95 Room Air 10/24/23 11:15 109/61 10/24/23 10:00 84 12 10/24/23 09:00 70 16 98 10/24/23 08:00 123/77 10/24/23 08:00 71 17 96 Room Air 10/24/23 07:01 72 22 96 10/24/23 06:00 97.4 F L 61 16 140/61 96 Room Air 10/24/23 05:00 58 L 14 112/85 94 Room Air 10/24/23 04:00 97.4 F L 61 18 129/53 L 95 Room Air 10/24/23 03:00 67 24 113/55 L 94 Room Air 10/24/23 02:00 61 20 111/74 95 Room Air PG Care Time/CCT Total # of Minutes Spent Total Time Spent with Patient: Total time spent is greater than 50% in coordination of care (as documented) at patient's floor/unit and/or counseling patient: Coding Level of Care Code 07966 SUB INP/OBS CARE 3/50MIN Diagnoses STEMI (ST elevation myocardial infarction) I21.19 Involved coronary artery: other inferior wall coronary artery (1) STEMI (ST elevation myocardial infarction) Involved coronary artery: other inferior wall coronary artery Qualified Code(s): I21.19 - ST elevation (STEMI) myocardial infarction involving other coronary artery of inferior wall
[2023-10-24] MEDS: SODIUM CHLORIDE 0.65% NA SOLN 45 ML (OCEAN) SCH ×2 (14:00→20:16)
[2023-10-24] MEDS: FLUTICASONE PROPIONATE NA SPR 16 GM BTL SCH (14:01)
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
[2023-10-25 04:58] LABS: Basophils # (auto) 0.06 K/uL (0.00-0.20); Basophils % (auto) 0.7 %; Eosinophils % (auto) 2.4 %; Hematocrit (blood only) 37.9 % (37.0-47.0); Hemoglobin 12.8 g/dl (12.0-16.0); Immature Granulocytes # (auto) 0.08 K/uL (0.01-0.20); Lymphocytes % (auto) 18.2 %; Mean Corpuscular Hemoglobin 31.2 pg (25.0-34.0); Mean Corpuscular Hgb Conc 33.8 g/dL (32.0-36.0); Mean Corpuscular Volume 92.4 fL (80.0-100.0); Mean Platelet Volume 8.7 fL (9.4-12.4); Monocytes # (auto) 0.59 K/uL (0.11-0.59); Monocytes % (auto) 7.2 %; Neutrophils # (auto) 5.82 K/uL (1.40-6.50); Neutrophils % (auto) 70.5 %; Platelet Count 337 K/uL (130-400); RDW Coefficient of Variation 12.3 % (11.5-14.5); RDW Standard Deviation 41.6 fL (36.4-46.3); White Blood Count 8.25 K/ul (4.8-10.8)
[2023-10-25 05:17] LABS: BUN Creatinine Ratio 24.7 (10-20); Calcium 8.7 mg/dl (8.6-10.3); Creatinine Clr Calc Pharmacy 53.2 ml/min; Est GFR (African American) 69.2 ml/min; Est GFR (Non-African American) 59.7 ml/min; Magnesium 2.2 mg/dl (1.7-2.4); Phosphorus 4.4 mg/dl (2.5-4.9); Potassium 4.3 mmol/L (3.5-5.1)
--- NOTE | 2023-10-25 05:52 | Electrocardiogram Report ---
Test Reason : Blood Pressure : / mmHG Vent. Rate : 062 BPM Atrial Rate : 062 BPM P-R Int : 132 ms QRS Dur : 102 ms QT Int : 404 ms P-R-T Axes : 063 -11 081 degrees QTc Int : 410 ms Normal sinus rhythm ST elevation consider inferior injury or acute infarct ACUTE MA / STEMI Consider right ventricular involvement in acute inferior infarct Abnormal ECG When compared with ECG of 02-JUN-2012 11:15, Premature atrial complexes are no longer Present ST elevation now present in Inferior leads ST now depressed in Lateral leads Confirmed by Renny Garcia ([id number]) on 10/25/2023 5:51:52 AM Referred By: Confirmed By:Renny Garcia
--- NOTE | 2023-10-25 06:02 | Electrocardiogram Report ---
Test Reason : Blood Pressure : / mmHG Vent. Rate : 101 BPM Atrial Rate : 101 BPM P-R Int : 152 ms QRS Dur : 090 ms QT Int : 384 ms P-R-T Axes : 041 -50 057 degrees QTc Int : 498 ms Sinus tachycardia Left anterior fascicular block Inferior infarct , age undetermined Prolonged QT Abnormal ECG When compared with ECG of 23-OCT-2023 10:11, QT has lengthened ST less elevated in Inferior leads Confirmed by Renny Garcia ([id number]) on 10/25/2023 6:01:49 AM Referred By: NO PCP Confirmed By:Renny Garcia
[2023-10-25] MEDS: ICU Protocol for HYPERglycemia SCH (08:38)
[2023-10-25] MEDS: METOPROLOL TARTRATE 25 MG TAB PO SCH (08:43)
[2023-10-25] MEDS: TICAGRELOR 90 MG TAB PO SCH (08:44)
[2023-10-25] MEDS: guaiFENesin 600 MG TABCR PO SCH (08:44)
[2023-10-25] MEDS: FLUTICASONE PROPIONATE NA SPR 16 GM BTL SCH (08:45)
[2023-10-25] MEDS: LORATADINE 10 MG TAB PO SCH (08:45)
[2023-10-25] MEDS: ASPIRIN 81 MG ECTAB PO SCH (08:45)
[2023-10-25] MEDS: PANTOprazole 40 MG TAB PO SCH (08:45)
[2023-10-25] MEDS: ATORVASTATIN 40 MG TAB PO SCH (08:45)
[2023-10-25] MEDS: lisinopril 5 MG TAB PO SCH (08:45)
[2023-10-25] MEDS: SODIUM CHLORIDE 0.65% NA SOLN 45 ML (OCEAN) SCH (08:48)
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
== END 2023-10-25 13:03 | disposition home or self-care (01) | DRG 322 ==
LOC: ED 09:55 → 1E 10:30 → SUATTDRO 10:48

== ENCOUNTER 2024-03-04 07:01 | Observation (INO) ==
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
[2024-03-04] MEDS: LACTATED RINGER'S 1,000 ML IV SCH ×2 (07:53→14:47)
[2024-03-04] MEDS ORDERED: ATROPINE SULFATE 0.1 MG/ML 10ML SYR IV PRN (08:26)
[2024-03-04] MEDS ORDERED: ePHEDrine sulfate 50 MG/ML AMP IV PRN (08:26)
[2024-03-04] MEDS ORDERED: ONDANSETRON INJ 2 MG/ML 2 ML VIAL IV PRN ×2 (08:26→13:28)
--- NOTE | 2024-03-04 08:47 | History & Physical Bridge Note ---
Date of Service March 04, 2024 History & Physical Bridge Note I have examined the patient, reviewed the History & Physical and in the interval since the performance of the History & Physical I have noted the following changes of clinical significance: no changes noted
[2024-03-04] MEDS ORDERED: MIDAZOLAM HCL 1 MG/ML 2ML VIAL ONE (09:03)
[2024-03-04] MEDS ORDERED: fentaNYL citrate PF 100 MCG/2 ML VIAL ONE (09:03)
[2024-03-04] MEDS ORDERED: DEXAMETHASONE SOD INJ 4 MG/ML VIAL ONE (09:06)
[2024-03-04] MEDS ORDERED: PROPOFOL IV EMULSION 10 MG/ML 20 ML VIAL IV ONE (09:06)
[2024-03-04] MEDS ORDERED: LIDOCAINE 2% 2 ML VIAL/AMP(20MG/ML) INFIL ONE (09:06)
[2024-03-04] MEDS ORDERED: ROCURONIUM BROMIDE 10 MG/ML 5 ML VIAL IV ONE (09:06)
[2024-03-04] MEDS ORDERED: ONDANSETRON INJ 2 MG/ML 2 ML VIAL ONE (09:06)
[2024-03-04] MEDS: ceFAZolin 2000MG 2,000 MG/15 ML SYR IV SCH (09:15)
[2024-03-04] MEDS ORDERED: PHENYLEPHRINE 100MCG/ML 10ML SYR IV ONE (09:41)
[2024-03-04] MEDS ORDERED: SUGAMMADEX SODIUM 200 MG/2 ML VIAL IV ONE (09:47)
[2024-03-04] MEDS: BUPIVACAINE/EPINEPHRINE 0.5% MPF 1:200,000 30 ML VIAL ONE (09:50)
--- NOTE | 2024-03-04 10:18 | Operative Report ---
PG Post Operative Report Pre & Post Diagnosis Operation Date: 03/04/24 08:45 Pre-Op Diagnosis: Symptomatic Cholelithiasis Post-Op Diagnosis: Symptomatic Cholelithiasis I identified the patient and participated in the time-out.: Yes Procedure Operation Date: 03/04/24 08:45 Actual Procedures p Laparoscopic Cholecystectomy(Not Applicable) - True Lopez DO Surgeon True Lopez DO Office Clinician nakul woodard Estimated Blood Loss 5 Findings Consistent with Post-Op Diagnosis Specimens gallbladder Description of Procedure After informed consent was obtained the patient was taken to the operating room and placed in the supine position. After successful intubation the abdomen was sterilely prepped and draped in usual fashion. A periumbilical incision was made with an 11 blade scalpel and carried down through the soft tissue using electrocautery. The anterior rectus fascia was opened using electrocautery and 2 #0 Vicryl stay sutures were placed. The peritoneum was elevated with hemostats and incised under direct vision using Metzenbaum scissors. A finger sweep was performed and a 12 mm Mitchell trocar was placed. The abdomen was insufflated to 18 mmHg. The laparoscope was inserted and the abdomen was examined in 360. No gross abnormalities were identified. A subxiphoid 5 mm port and 2 right upper quadrant 5 mm ports were placed under direct vision. The patient was placed in a reverse Trendelenburg position and slightly airplaned to the left. The gallbladder was grasped and elevated superiorly and laterally. A [place] dissector was used to take down adhesions around the neck of the gallbladder. The cystic duct was identified and skeletonized. It was clipped twice proximally and once distally and transected using a laparoscopic scissor. In similar fashion the cystic artery was identified and skeletonized clipped and divided. There was a second small branch of the cystic artery was clipped and divided as well. The gallbladder was removed from the gallbladder fossa with electrocautery. It was placed into an Endo Catch bag. Thorough irrigation was performed. At the end of the procedure there was adequate hemostasis and no evidence of any bile leaks. A final look around the abdomen showed no other abnormalities. The gallbladder and trochars were all removed and the abdomen was desufflated. The fascia of the camera port was closed using 0 Vicryl in a [id number] fashion. All the wounds were irrigated and closed using 4-0 Monocryl. Marcaine was injected around them for postoperative analgesia and skin glue used as a dressing. The patient was awaken extubated and transferred to recovery in stable condition. My TERRITORY SALES MANAGER MEDICAL loan officer assistant was present throughout the entire case... helped with prepping the patient. With exposure for trocar placement, as well as retracted the gallbladder throughout the case and also assisted with wound closure and dressing placement. I attest to the content of the Intraoperative Record and any orders documented therein. Any exceptions are noted below.
[2024-03-04] MEDS: fentaNYL citrate PF 100 MCG/2 ML VIAL IV PRN (10:24)
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
--- NOTE | 2024-03-04 10:51 | Anesthesiology Progress Note ---
Date of Service March 04, 2024 Anesthesia Post Procedure Vital Signs Vital Signs: Temp Pulse Pulse Resp BP Pulse Ox O2 Del Method 03/04/24 10:40 68 13 147/84 H 95 Room Air 03/04/24 10:30 68 19 148/66 H 95 Room Air 03/04/24 10:20 69 12 163/70 H 100 Oxymask 03/04/24 10:10 96.8 F L 85 16 155/89 H 100 Oxymask 03/04/24 07:36 97.5 F L 74 20 152/94 H 99 Room Air O2 Flow Rate 03/04/24 10:40 03/04/24 10:30 03/04/24 10:20 4 03/04/24 10:10 12 03/04/24 07:36 Pain Intensity Abdomen: Pain Intensity: 5 Transfer of Care Handoff Completed per policy Notes Mental Status: alert / awake / arousable and participated in evaluation Patient Amnestic to Procedure: Yes Nausea / Vomiting: adequately controlled Pain: adequately controlled Airway Patency, RR, SpO2: stable & adequate BP & HR: stable & adequate Hydration State: stable & adequate Anesthetic Complications: no major complications apparent and Pt Satisfied with anesthetic care
[2024-03-04 11:34] LABS: Hemoglobin 12.1 g/dl (12.0-16.0); Mean Corpuscular Hemoglobin 30.4 pg (25.0-34.0); Mean Corpuscular Hgb Conc 33.6 g/dL (32.0-36.0); Mean Corpuscular Volume 90.5 fL (80.0-100.0); Mean Platelet Volume 8.5 fL (9.4-12.4); Platelet Count 321 K/uL (130-400); RDW Coefficient of Variation 13.4 % (11.5-14.5); RDW Standard Deviation 44.6 fL (36.4-46.3); Red Blood Count 3.98 M/uL (4.20-5.40); White Blood Count 9.09 K/ul (4.8-10.8)
[2024-03-04] MEDS: MoRPHine SULFATE 4 MG/ML 1 ML CARP\\VIAL ONE (11:52)
[2024-03-04] MEDS: MoRPHine SULFATE 2 MG/ML CARP IV STA (11:53)
[2024-03-04 11:54] LABS: Albumin Globulin Ratio 1.6 (0.9-2); Albumin Level 3.8 gm/dl (3.4-5.0); BUN Creatinine Ratio 16.7 (10-20); Bilirubin,Total 0.4 mg/dl (0.2-1.0); Calcium 8.6 mg/dl (8.6-10.3); Est GFR (Non-African American) 73.3 ml/min; Globulin 2.4 gm/dl (2.5-4.0); Phosphorus 3.7 mg/dl (2.5-4.9); Total Protein 6.2 gm/dl (6.0-8.3)
[2024-03-04] MEDS: METOPROLOL TARTRATE 25 MG TAB PO SCH (12:20)
--- NOTE | 2024-03-04 12:31 | Electrocardiogram Report ---
Test Reason : Blood Pressure : / mmHG Vent. Rate : 073 BPM Atrial Rate : 073 BPM P-R Int : 156 ms QRS Dur : 108 ms QT Int : 440 ms P-R-T Axes : 065 -27 058 degrees QTc Int : 484 ms Normal sinus rhythm Incomplete left bundle block Borderline ECG When compared with ECG of 27-DEC-2023 07:13, No significant change was found Confirmed by Obey Anguiano ([id number]) on 03/04/2024 12:31:20 PM Referred By: True Lopez Confirmed By:Obey Anguiano
[2024-03-04] MEDS ORDERED: MoRPHine SULFATE 2 MG/ML CARP IV PRN (13:28)
[2024-03-04 15:33] LABS: Albumin Globulin Ratio 1.4 (0.9-2); Albumin Level 3.7 gm/dl (3.4-5.0); BUN Creatinine Ratio 17.8 (10-20); Bilirubin,Total 0.4 mg/dl (0.2-1.0); Calcium 8.5 mg/dl (8.6-10.3); Creatinine Clr Calc Pharmacy 64.2 ml/min; Est GFR (African American) 92.1 ml/min; Est GFR (Non-African American) 79.4 ml/min; Globulin 2.6 gm/dl (2.5-4.0); Potassium 4.3 mmol/L (3.5-5.1); Total Protein 6.3 gm/dl (6.0-8.3)
[2024-03-04 15:37] LABS: INR 0.9 (0.9-1.1); Partial Thromboplastin Ratio 0.9; Partial Thromboplastin Time 24 Seconds (21-31); Prothrombin Time 10.3 Seconds (9.0-12.0)
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
[2024-03-04] MEDS: ACETAMINOPHEN 325 MG TAB PO PRN (16:54)
[2024-03-04] MEDS: oxyCODONE HCL IR 5 MG TAB (IMMEDIATE RELEASE) PO PRN (19:47)
[2024-03-05 07:08] LABS: Basophils # (auto) 0.03 K/uL (0.00-0.20); Basophils % (auto) 0.3 %; Eosinophils # (auto) 0.03 K/uL (0.00-0.50); Eosinophils % (auto) 0.3 %; Hematocrit (blood only) 34.4 % (37.0-47.0); Hemoglobin 11.5 g/dl (12.0-16.0); Immature Granulocytes # (auto) 0.03 K/uL (0.01-0.20); Immature Granulocytes % (auto) 0.3 %; Lymphocytes # (auto) 1.81 K/uL (1.20-3.40); Lymphocytes % (auto) 20.5 %; Mean Corpuscular Hemoglobin 30.4 pg (25.0-34.0); Mean Corpuscular Hgb Conc 33.4 g/dL (32.0-36.0); Mean Platelet Volume 8.9 fL (9.4-12.4); Monocytes # (auto) 0.55 K/uL (0.11-0.59); Monocytes % (auto) 6.2 %; Neutrophils # (auto) 6.39 K/uL (1.40-6.50); Neutrophils % (auto) 72.4 %; Platelet Count 311 K/uL (130-400); RDW Coefficient of Variation 13.4 % (11.5-14.5); RDW Standard Deviation 44.3 fL (36.4-46.3); Red Blood Count 3.78 M/uL (4.20-5.40); White Blood Count 8.84 K/ul (4.8-10.8)
[2024-03-05 07:22] LABS: Phosphorus 3.7 mg/dl (2.5-4.9)
--- NOTE | 2024-03-05 07:24 | Surgery Progress Note ---
Date of Service March 05, 2024 Assessment & Plan (1) S/P laparoscopic cholecystectomy: Plan: POD#1 lap jesus manuel WBC 8, Hbg 11. Vitals stable, afebrile Expected post op pain, manageable on current regimen Incisions c/d/i, some ecchymosis noted to umbilical incision Will advance diet as tolerates Denies CP/SOB. Appreciate hospitalists and cardiology assistance with pt, will await their final recs and hopeful for discharge to home Dispo instructions reviewed, f/u in the office with Dr. Lopez in 2 weeks as above. will check with cardiology....if ok with them will d/c home on Metoprolol ( already has at home) Admission and Anticipated Discharge Date Admission Date: March 04, 2024 Subjective Patient feeling pretty well. Has some abdominal soreness but this is manageable. Some bilateral shoulder discomfort. Tolerating clears without nausea/vomiting. Denies chest pain or shortness of breath. Physical Exam Physical Exam: awake/alert, no distress Respiratory: normal respiratory effort Gastrointestinal (Abdomen): Inspection/Auscultation: + abdominal surgical incision (c/d/i, ecchymosis noted to umbilical incision); abdomen not distended Percussion/Palpation: + abdomen tender (expected val incisional discomfort) and abdomen soft Results & Data Vital Signs (Past 12 Hours) Vital Signs Temp Pulse Pulse Resp BP Pulse Ox O2 Del Method 03/05/24 04:01 97.5 F L 58 L 20 134/69 94 Room Air 03/05/24 03:00 97.5 F L 58 L 20 134/69 94 Room Air 03/04/24 23:46 98.1 F 58 L 20 137/73 93 Room Air 03/04/24 23:00 98.1 F 58 L 20 137/73 93 Room Air 03/04/24 21:58 61 03/04/24 20:00 97.9 F 75 20 146/74 H 94 Room Air PG Care Time/CCT Total # of Minutes Spent Total Time Spent with Patient: Total time spent is greater than 50% in coordination of care (as documented) at patient's floor/unit and/or counseling patient: Coding Level of Care Code 27017 Post Operative Follow-Up Diagnoses S/P laparoscopic cholecystectomy Z90.49
[2024-03-05] MEDS: lisinopril 5 MG TAB PO SCH (08:23)
[2024-03-05] MEDS: ASPIRIN 81 MG ECTAB PO SCH (08:23)
--- NOTE | 2024-03-05 09:18 | Hospitalist Progress Note ---
Date of Service March 05, 2024 Assessment & Plan (1) S/P laparoscopic cholecystectomy: (2) PVC's (premature ventricular contractions): (3) History of ST elevation myocardial infarction (STEMI): (4) S/P cardiac catheterization: (5) HTN (hypertension): Plan Tika Wilson is a 78y/o F with PMHx of dyslipidemia, gallstone pancreatitis, allergic rhinitis, deviated nasal septum, chronic pharyngitis, CAD (80% distal LAD), hx of STEMI s/p PCI w/ LUÍS to distal RCA [10/2023], IBS, esophageal reflux and other problems listed below who underwent laparoscopic cholecystectomy w/ Dr. True Lopez on 03/04/24 for the tx of symptomatic cholelithiasis. Consult placed for further medical management in setting of significant cardiac history. Symptomatic Cholelithiasis s/p lap jesus manuel on 03/04/24 Further management per primary SVT PVC's (premature ventricular contractions): History of ST elevation myocardial infarction (STEMI) S/P cardiac catheterization Patient recently s/p PCI w/ LUÍS to distal RCA following dx of an inferior STEMI back in October of this year [was hospitalized 10/23/23-10/25/23 here @ [facility]]. Had runs of SVT, PVCs post operatively on 03/04 and 03/05 Cardiology was consulted, appreciate recs: Per Dr Obey Anguiano: "no evidence of myocardial ischemia, heart failure, or sustained dysrhythmia. As noted, her brief wide-complex event appears to be SVT with aberrancy and was asymptomatic. Both for the ventricular ectopy and the tendency to SVT, recommend discharge on metoprolol succinate 25 mg daily. Continue aspirin 81 mg daily and important to resume ticagrelor 90 mg twice daily." Was previously on statin therapy [had to stop d/t elevated LFTs], plan per Dr. Schwarz' most recent note is to retry statin therapy >10 days s/p laparoscopic cholecystectomy. 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 As per above, on BB therapy with metoprolol succinate Admission and Anticipated Discharge Date Admission Date: March 04, 2024 Subjective pt was seen in the Am. States that she has been cleared for discharge. Did have another run of v tach, cardiology aware. Pt states she was asymptomatic. Denying acute concerns. Review of Systems Review of Systems: All systems reviewed & are unremarkable except as noted in Subjective Physical Exam Physical Exam: General: Alert, oriented. No acute distress Skin: No noted rashes or bruises Psych: Appropriate mood and affect Neuro: No gross deficits HEENT: NC/AT CV: RRR Resp: Breath sounds clear bilaterally, no increased effort of breathing. No crackles/rhonchi/rales. Abdomen: Soft, slightly tender diffusely, surgical incisions dry, intact Extremities: No edema in lower extremities bilaterally. Results & Data Results & Data Vital Signs (Past 12 Hours) Vital Signs Temp Pulse Pulse Resp BP Pulse Ox O2 Del Method 03/05/24 07:46 36.6 C 58 L 16 148/70 H 95 Room Air 03/05/24 07:27 54 L 03/05/24 04:01 36.4 C L 58 L 20 134/69 94 Room Air 03/05/24 03:00 36.4 C L 58 L 20 134/69 94 Room Air 03/04/24 23:46 36.7 C 58 L 20 137/73 93 Room Air 03/04/24 23:00 36.7 C 58 L 20 137/73 93 Room Air 03/04/24 21:58 61 (5) HTN (hypertension) Hypertension type: unspecified Qualified Code(s): I10 - Essential (primary) hypertension
[2024-03-05 09:23] LABS: Albumin Globulin Ratio 1.5 (0.9-2); Albumin Level 3.5 gm/dl (3.4-5.0); BUN Creatinine Ratio 15.3 (10-20); Bilirubin,Total 0.5 mg/dl (0.2-1.0); Calcium 8.5 mg/dl (8.6-10.3); Est GFR (African American) 93.6 ml/min; Est GFR (Non-African American) 80.8 ml/min; Globulin 2.3 gm/dl (2.5-4.0); Potassium 4.1 mmol/L (3.5-5.1); Total Protein 5.8 gm/dl (6.0-8.3)
--- NOTE | 2024-03-05 10:55 | Cardiology Progress Note ---
Date of Service March 05, 2024 Assessment & Plan (1) PVC's (premature ventricular contractions): (2) SVT (supraventricular tachycardia): (3) S/P laparoscopic cholecystectomy: (4) CAD (coronary artery disease): (5) History of ST elevation myocardial infarction (STEMI): Plan She is doing well with no evidence of myocardial ischemia, heart failure, or sustained dysrhythmia. As noted, her brief wide-complex event appears to be SVT with aberrancy and was asymptomatic. Both for the ventricular ectopy and the tendency to SVT, recommend discharge on metoprolol succinate 25 mg daily. Continue aspirin 81 mg daily and important to resume ticagrelor 90 mg twice daily. Okay for discharge from a cardiac standpoint. Admission and Anticipated Discharge Date Admission Date: March 04, 2024 Subjective Uneventful night. She is doing well. No chest pain, dyspnea, subjective palpitations, or lightheadedness. Minor abdominal bloating radiating upward. Overall, she feels well. Telemetry showed sinus rhythm in the 50-60 bpm range with only occasional PVCs, there was one 10 beat run of wide-complex mild tachycardia (just over 100 bpm), this shows some irregularity with P waves before several of the beats, most consistent with brief runs of SVT with rate related bundle branch block. Not suggestive of ventricular tachycardia. Physical Exam Physical Exam: No distress. BP normotensive. Pulse 58 bpm and regular. Respirations 16 and unlabored. Skin: no ecchymoses or generalized lesions. HEENT: unremarkable. Neck: JVP at the clavicle at 90 degrees, no carotid bruits. Lungs: clear. Cardiac: regular rhythm, normal S1-2, no murmur. Abdomen: Nondistended. Extremities: no edema, pulses intact. Neurologic: normal affect and conversation, nonfocal. Results & Data Laboratory Results Normal electrolytes, BUN 11, creatinine 0.72. Hemoglobin 11.5. PG Care Time/CCT Total # of Minutes Spent Total Time Spent with Patient: Total time spent is greater than 50% in coordination of care (as documented) at patient's floor/unit and/or counseling patient: Coding Level of Care Code 56784 SUB INP/OBS CARE 2/35MIN Diagnoses PVC's (premature ventricular contractions) I49.3 SVT (supraventricular tachycardia) I47.10 S/P laparoscopic cholecystectomy Z90.49 CAD (coronary artery disease) I25.[address] elevation myocardial infarction (STEMI) I25.2
--- NOTE | 2024-03-08 15:18 | Discharge Summary ---
Date of Service March 05, 2024 Principal Diagnosis s/p laparoscopic cholecystectomy HTN history of STEMI SVT PVCs Discharge Exam awake/alert, no distress Respiratory normal respiratory effort Gastrointestinal (Abdomen) Inspection/Auscultation: + abdominal surgical incision (c/d/i some mild ecchymosis to umbilical incision ); abdomen not distended Percussion/Palpation: + abdomen tender (expected val incisional discomfort ) and abdomen soft Discharge Data Allergies Allergy/AdvReac Type Severity Reaction Status Date / Time No Known Drug Allergies Allergy Unknown . Verified 03/04/24 12:19 Consultations 03/04/24 13:28 Consult Cardiology Routine Consult Hospitalist Routine Procedures Performed Operation Date: 03/04/24 08:45 Actual Procedures p Laparoscopic Cholecystectomy(Not Applicable) - True Lopez, DO Hospital Course (1) S/P laparoscopic cholecystectomy: This is a 78yF who presented to the [facility] on 03/04/24 for an electively scheduled laparoscopic cholecystectomy with Dr. Lopez. The surgical procedure went well, see op note for full details. The patient was admitted for overnight observation given her cardiac history. Both medicine and cardiology were consulted during her stay for their post-op recommendations. Her pain was well controlled on prn pain meds and her diet was advanced as tolerated. Incisions c/d/i. Medicine and cardiology recommended patient was okay to resume her home metoprolol. Her brillinta was resumed on POD#1. On 03/05 the patient was deemed stable for discharge to home. She was instructed to follow up in the office within 2 weeks for a post op check. Total Time Total Time Spent Total Time Spent (In Minutes): 15 Discharge Plan Discharge Items Patient Disposition: Home - Self-Care Reason For Visit: Symptomatic Gallstones Discharge Diagnosis: laparoscopic cholecystectomy Activity: Per Instructions section Lifting: No more than 10 pounds Bathing Comment: may shower starting 03/06/24; no soaking in tubs/pools x 2 weeks Exercise/Sports: Wait until after follow-up appointment Driving/Machine Use: no driving while on narcotics for pain Non-emergency contact: Primary Care Provider and Surgeon Call non-emergency contact if: you have any medication questions, your symptoms worsen, your pain is worsening, you have a fever, your temperature is above 101.5, your wound has increased redness, your wound has increased drainage and your wound pain has increased Follow-up/Referrals: True Lopez, DO [Surgeon] - (Please call to schedule follow up in clinic within 2 weeks) Chantale Fairbanks MD [Primary Care Provider] - Diet: Heart Healthy Addtl Attending Provider Instructions: You have skin glue over your incisions called dermabond. you may shower with this on. It will tend to dissolve and fall off within a couple weeks. Do not pick at the skin glue You may resume your Brillinta on 03/05/24 Pending Studies at Discharge: Yes Studies:: surgical pathology Stand-Alone Forms: My [facility] Medications and DC Order Prescriptions: New oxycodone 5 mg tablet 5 - 10 mg PO .[id number] MDD no more than 6 tabs in 24hours PRN (Reason: pain) Qty: 15 0RF metoprolol tartrate 25 mg Tablet 25 mg PO DAILY Qty: 30 0RF Continued multivitamin with iron [Daily Multiple Vitamins/Iron] tablet 1 tab PO QAM lisinopril [Zestril] 5 mg tablet 5 mg PO QAM Qty: 90 3RF cholecalciferol (vitamin D3) [Vitamin D3] 50 mcg (2,000 unit) Tablet 50 mcg PO QAM Dupixent Pen 300 mg/2 mL pen injector 300 mg SUBCUT UD Rx Instructions: Every 2 weeks aspirin 81 mg tablet,delayed release (DR/EC) 81 mg PO QAM Brilinta 90 mg tablet 90 mg PO BID fluocinolone and shower cap 0.01 % oil 1 ea TOPICAL HS PRN (Reason: flare) Discharge Orders: Discharge Order (Routine); Ordered 03/05/24 Ordered By: True Lopez Admission Data Admit Date/Time: 03/04/24 10:12 Attending Provider: True Lopez Admit Provider: True Lopez Primary Care Provider: Chantale Fairbanks Other Providers: Paty Carballo; Obey Anguiano Other Interventions: Discharge Summary Assessment (RN) Last Done: 03/05/24 10:32 Coding Level of Care Code 74032 IN/OBS DISCH 30 MIN/LESS Diagnoses S/P laparoscopic cholecystectomy Z90.49
== END 2024-03-05 11:24 | disposition home or self-care (01) ==
LOC: 2N 07:01 → ASU 07:01
DX: I25.2 Old myocardial infarction; Z79.891 Long term (current) use of opiate analgesic; K80.10 Calculus of gallbladder with chronic cholecystitis without obstruction; I47.10 Supraventricular tachycardia, unspecified; I25.10 Atherosclerotic heart disease of native coronary artery without angina pectoris; I49.3 Ventricular premature depolarization; Z79.82 Long term (current) use of aspirin; M54.9 Dorsalgia, unspecified; Z95.5 Presence of coronary angioplasty implant and graft; I10 Essential (primary) hypertension